=== PATIENT | male | born 1935 | race Caucasian/White ===

== ENCOUNTER 2016-03-24 18:19 | Inpatient (IN) | payer MEDICARE, BC ==
[~2016-03-24] VITALS: Ht 167.6 cm; Wt 68.0 kg
[~2016-03-24 18:19] MED LIST: ATOR10TA PO; CARV6.252 PO; FURO20TA4 PO; HYDR100T27 PO; ISOS30TA6 PO; LANS30CA10 PO; LEVO50TA8 PO; NIFE60TA2 PO; PREG75CA PO; ZOLP5TAB7 PO
[2016-03-24] MEDS ORDERED: GELATIN SPONGE,ABSORBABLE 1 SPONGE SPONGE TP ONE (19:27)
[2016-03-24 19:56] LABS: BASOPHILS % (AUTO) 0.5 % (0.0-2.0); DIFF TOTAL % 100 %; EOSINOPHILS # (AUTO) 0.4 /CMM (0.0-0.7); EOSINOPHILS % (AUTO) 4.9 % (0.0-6.0); HEMATOCRIT 35 % (39-51); LYMPHOCYTES # (AUTO) 1.8 /CMM (0.8-4.8); LYMPHOCYTES % (AUTO) 19.3 % (20.0-44.0); MEAN CORPUSCULAR HEMOGLOBIN 34 PG (26.0-33.0); MEAN CORPUSCULAR HGB CONC 35 g/dl (31.0-36.0); MEAN CORPUSCULAR VOLUME 100 fL (80-96); MONOCYTES # (AUTO) 0.5 /CMM (0.1-1.30); MONOCYTES % (AUTO) 5.6 % (2.0-12.0); NEUTROPHILS # (AUTO) 6.4 /CMM (1.8-8.9); NEUTROPHILS % (AUTO) 69.7 % (43.0-81.0); PLATELET COUNT (AUTO) 86 /CMM (150-450); RED BLOOD CELL COUNT(AUTO) 3.48 MIL/uL (4.5-6.0); WHITE BLOOD COUNT (AUTO) 9.1 K/uL (4.3-11.0)
[2016-03-24] MEDS ORDERED: ONDANSETRON HCL/PF 4 MG/2 ML VIAL ONE (20:02)
[2016-03-24 20:04] LABS: CALCIUM, SERUM 9.4 mg/dL (8.5-10.1); CREATININE 4.2 mg/dL (0.6-1.3); POTASSIUM 5.1 mmol/L (3.5-5.1)
[2016-03-24 20:10] LABS: INR 1.04 (0.87-1.13); PROTHROMBIN TIME 10.9 SECS (9.5-12.7)
[2016-03-24 20:24] LABS: BAND % (MANUAL) 2 % (0.0-5.0); EOSINOPHILS % (MANUAL) 3 % (0-4); LYMPHOCYTES % (MANUAL) 31 % (16-48)
[2016-03-24 20:25] LABS: ANISOCYTOSIS 1+; PLATELET ESTIMATE DECREASED
[2016-03-24] MEDS ORDERED: IV NS 0.9% 500 ML IV ONE (20:28)
[2016-03-24] MEDS ORDERED: IV SET PRIMARY 1 EA INFUS.SET MC ONE (20:28)
[2016-03-24] MEDS ORDERED: IV NS 0.9% 500 ML BAG IV ONE ×2 (20:30→21:30)
[2016-03-24] MEDS ORDERED: ACETAMINOPHEN 325 MG TABLET ONE (20:50)
[2016-03-24] MEDS ORDERED: ACETAMINOPHEN 325 MG TABLET PO ONE (21:00)
[2016-03-24] MEDS ORDERED: ONDANSETRON HCL/PF 4 MG/2 ML VIAL IV ONE (21:00)
[2016-03-24] MEDS ORDERED: CHOL20004 PO (22:02)
[2016-03-24] MEDS ORDERED: ALPR0.5T PO (22:02)
[2016-03-24] MEDS ORDERED: ASCO500T9 PO (22:02)
[2016-03-24] MEDS ORDERED: OMEG1CAP40 PO (22:02)
[2016-03-24] MEDS ORDERED: hydrALAZINE HCL 25 MG TABLET PO PRN (22:30)
[2016-03-24] MEDS ORDERED: ONDANSETRON HCL/PF 4 MG/2 ML VIAL IV PRN (22:30)
[2016-03-24] MEDS ORDERED: INSULIN REGULAR, HUMAN 100 UNIT/ML 10 ML VIAL IV ONE (22:30)
[2016-03-24] MEDS ORDERED: SODIUM POLYSTYRENE SULFONATE 15 G/60 ML BOTTLE PO ONE (22:30)
[2016-03-24] MEDS ORDERED: DEXTROSE 50%-WATER 50 ML DISP.SYRIN IV ONE (22:30)
[2016-03-24] MEDS ORDERED: ALPRAZOLAM 0.5 MG TABLET PO SCH (23:30)
[2016-03-25] VITALS: BP 100/54
[2016-03-25] MEDS ORDERED: SODIUM POLYSTYRENE SULFONATE 15 G/60 ML BOTTLE ONE (00:05)
[2016-03-25 00:44] VITALS: BP 105/62
[2016-03-25 04:00] VITALS: BP 121/64
[2016-03-25 06:42] LABS: BASOPHILS # (AUTO) 0.1 /CMM (0.0-0.2); BASOPHILS % (AUTO) 1.1 % (0.0-2.0); DIFF TOTAL % 100 %; EOSINOPHILS # (AUTO) 0.1 /CMM (0.0-0.7); EOSINOPHILS % (AUTO) 2.2 % (0.0-6.0); HEMATOCRIT 25 % (39-51); HEMOGLOBIN 8.6 g/dL (13.5-17.5); LYMPHOCYTES # (AUTO) 2.2 /CMM (0.8-4.8); LYMPHOCYTES % (AUTO) 36.6 % (20.0-44.0); MEAN CORPUSCULAR HEMOGLOBIN 35 PG (26.0-33.0); MEAN CORPUSCULAR HGB CONC 34 g/dl (31.0-36.0); MEAN CORPUSCULAR VOLUME 102 fL (80-96); MONOCYTES # (AUTO) 0.4 /CMM (0.1-1.30); MONOCYTES % (AUTO) 7.1 % (2.0-12.0); NEUTROPHILS # (AUTO) 3.2 /CMM (1.8-8.9); PLATELET COUNT (AUTO) 83 /CMM (150-450); RED BLOOD CELL COUNT(AUTO) 2.47 MIL/uL (4.5-6.0); WHITE BLOOD COUNT (AUTO) 6.1 K/uL (4.3-11.0)
[2016-03-25 06:56] VITALS: BP 106/53
[2016-03-25 07:22] LABS: CALCIUM, SERUM 8.1 mg/dL (8.5-10.1); PHOSPHORUS 4.3 mg/dL (2.5-4.9); POTASSIUM 5.2 mmol/L (3.5-5.1)
[2016-03-25 08:00] VITALS: BP_SYST 106; BP_DIAS 63; BP_DIAS 93
[2016-03-25 08:44] LABS: EOSINOPHILS % (MANUAL) 3 % (0-4); LYMPHOCYTES % (MANUAL) 34 % (16-48)
[2016-03-25 08:45] LABS: ANISOCYTOSIS 1+; PLATELET ESTIMATE DECREASED
== END 2016-03-25 13:38 | disposition home or self-care (01) | DRG 252 ==
LOC: ER 18:21 → TELE 21:35 → MED 03-25 10:11
PROVIDERS: ADMIT Internal Medicine; ATTEND Internal Medicine
PROC: 03Q70ZZ Repair Right Brachial Artery, Open Approach (ICD-10-PCS; principal; 2016-03-24)
DX: T82.838A Hemorrhage due to vascular prosthetic devices, implants and grafts, initial encounter (principal); N18.6 End stage renal disease; I12.0 Hypertensive chronic kidney disease with stage 5 chronic kidney disease or end stage renal disease; I31.3 Pericardial effusion (noninflammatory); Y83.9 Surgical procedure, unspecified as the cause of abnormal reaction of the patient, or of later complication, without mention of misadventure at the time of the procedure; Y92.009 Unspecified place in unspecified non-institutional (private) residence as the place of occurrence of the external cause; E11.22 Type 2 diabetes mellitus with diabetic chronic kidney disease; I25.10 Atherosclerotic heart disease of native coronary artery without angina pectoris; Z99.2 Dependence on renal dialysis; E87.5 Hyperkalemia; D50.0 Iron deficiency anemia secondary to blood loss (chronic)
CPT/HCPCS: 36415; 80048-TC; 83735-TC; 84100-TC; 84132-TC; 85025-TC; 85027-TC; 85730-TC; 86850-TC; 86901; 87081-TC; 93307-TC; A4606; A6403; J1815; J2405; J7040; Z7610

== ENCOUNTER 2016-05-26 19:20 | Emergency (ER) | payer MEDICARE, BC ==
[~2016-05-26] VITALS: Ht 172.7 cm; Wt 72.6 kg
[~2016-05-26 19:20] MED LIST changes: +ALPR0.5T PO; +ASCO500T9 PO; +CHOL20004 PO; +OMEG1CAP40 PO
[2016-05-26 19:26] VITALS: BP 121/68
[2016-05-26] MEDS ORDERED: GELATIN SPONGE,ABSORBABLE 1 SPONGE SPONGE TP ONE ×2 (19:27→20:04)
--- NOTE | 2016-05-26 19:30 | NUR ---
To bed 5 a 81 yo male bib with c/o bleeding av shunt on the right upper arm. Patient reported that it has been bleeding since 1700 from home. Patient verbalized that he had dialysis today but when he arrived home, bleeding started. Noted right AV shunt actively bleeding, and pulsating. Direct pressure with gel foam applied. Awaiting for er md tse.
--- NOTE | 2016-05-26 19:40 | NUR ---
Dr walton at bedside.
--- NOTE | 2016-05-26 19:55 | NUR ---
Dr Max sutured area, applied with dermabond, wrapped with kerlix.
--- NOTE | 2016-05-26 20:28 | NUR ---
No signs of bleeding noted on the dressing. Will continue to monitor.
--- NOTE | 2016-05-26 20:31 | NUR ---
Reminded Dr Max about the gel foam orders.
--- NOTE | 2016-05-26 21:05 | NUR ---
Patient and eloped. Dr Max notified.
== END 2016-05-26 21:05 | disposition home or self-care (01) ==
LOC: ER 19:22
DX: T82.838A Hemorrhage due to vascular prosthetic devices, implants and grafts, initial encounter (principal); I12.0 Hypertensive chronic kidney disease with stage 5 chronic kidney disease or end stage renal disease; N18.6 End stage renal disease; E11.22 Type 2 diabetes mellitus with diabetic chronic kidney disease; Z95.5 Presence of coronary angioplasty implant and graft; Z99.2 Dependence on renal dialysis
CPT/HCPCS: A4606; A6402; A6403; Z7610

== ENCOUNTER 2016-08-09 20:06 | Emergency (ER) | payer BC, MEDICARE ==
[~2016-08-09] VITALS: Ht 167.6 cm; Wt 72.6 kg
--- NOTE | 2016-08-09 20:53 | NUR ---
NOSE CLAMP APPLIED.
--- NOTE | 2016-08-09 20:55 | NUR ---
Too COLEY, ACNP-SCARLET AND BYRON FRANCIS ARE AT THE BEDSIDE EVALUATIG THE PT.
--- NOTE | 2016-08-09 21:01 | NUR ---
CALLED , LEFT MESSAGE ON VOICEMAIL
[2016-08-09 21:21] LABS: BASOPHILS # (AUTO) 0.1 /CMM (0.0-0.2); BASOPHILS % (AUTO) 0.7 % (0.0-2.0); EOSINOPHILS # (AUTO) 0.2 /CMM (0.0-0.7); EOSINOPHILS % (AUTO) 2.8 % (0.0-6.0); HEMATOCRIT 35 % (39-51); HEMOGLOBIN 11.9 g/dL (13.5-17.5); LYMPHOCYTES # (AUTO) 1.4 /CMM (0.8-4.8); LYMPHOCYTES % (AUTO) 19.3 % (20.0-44.0); MEAN CORPUSCULAR HEMOGLOBIN 32 PG (26.0-33.0); MEAN CORPUSCULAR HGB CONC 34 g/dl (31.0-36.0); MEAN CORPUSCULAR VOLUME 95 fL (80-96); MONOCYTES # (AUTO) 0.4 /CMM (0.1-1.30); MONOCYTES % (AUTO) 5.1 % (2.0-12.0); NEUTROPHILS # (AUTO) 5.1 /CMM (1.8-8.9); NEUTROPHILS % (AUTO) 72.1 % (43.0-81.0); PLATELET COUNT (AUTO) 112 /CMM (150-450); RDW COEFFICIENT OF VARIATION 13.6 (11.5-15.0); WHITE BLOOD COUNT (AUTO) 7.2 K/uL (4.3-11.0)
[2016-08-09] MEDS ORDERED: OXYMETAZOLINE HCL NASAL SPRAY 30 ML BOTTLE NS ONE ×2 (21:30)
[2016-08-09 21:34] LABS: INR 0.99 (0.87-1.13); PROTHROMBIN TIME 10.3 SECS (9.5-12.7)
--- NOTE | 2016-08-09 21:50 | NUR ---
AFRIN APPLIED TO COTTON BALLS AND INSERTED INTO BILATERAL NARES BY BYRON FRANCIS.
--- NOTE | 2016-08-09 22:08 | NUR ---
COTTON BALLS REMOVED BY BYRON FRANCIS.
--- NOTE | 2016-08-09 22:15 | NUR ---
PT'S NOSE STARTED BLEEDING AGAIN. RHINO ROCKETS AT THE BEDSIDE.
[2016-08-09 23:13] VITALS: BP 133/84
== END 2016-08-09 23:13 | disposition home or self-care (01) ==
LOC: ER 20:11
DX: R04.0 Epistaxis (principal); N18.6 End stage renal disease; E11.9 Type 2 diabetes mellitus without complications; Z95.811 Presence of heart assist device
CPT/HCPCS: 30901; 36415; 85025; 85730; 99284; A4606; Z7610

== ENCOUNTER 2017-09-15 20:19 | Inpatient (IN) | payer MEDICARE, BC ==
[~2017-09-15] VITALS: Ht 165.1 cm; Wt 53.5 kg
[~2017-09-15 20:19] MED LIST changes: -LANS30CA10 PO; +LANS30CA54 PO; -ZOLP5TAB7 PO; +ZOLP5TAB8 PO
--- NOTE | 2017-09-15 20:55 | NUR ---
CALLED 'S OFFICE, CLINIC OFFICE COORDINATOR, TRANSFERRED CALL TO PENNY VILLARREAL)
--- NOTE | 2017-09-15 21:00 | NUR ---
ER BYRON ESCOBEDO SPOKE TO DR. NAJERA REGARDING PT.
--- NOTE | 2017-09-15 21:14 | NUR ---
BLOOD DRAWN BY MANAGER GROUP HOME.
[2017-09-15 21:18] LABS: BASOPHILS % (AUTO) 1.1 % (0.0-2.0); EOSINOPHILS % (AUTO) 10.9 % (0.0-6.0); HEMATOCRIT 34 % (39-51); HEMOGLOBIN 11.7 g/dL (13.5-17.5); LYMPHOCYTES # (AUTO) 1.5 /CMM (0.8-4.8); LYMPHOCYTES % (AUTO) 32.6 % (20.0-44.0); MEAN CORPUSCULAR HEMOGLOBIN 35 PG (26.0-33.0); MEAN CORPUSCULAR HGB CONC 35 g/dl (31.0-36.0); MEAN CORPUSCULAR VOLUME 100 fL (80-96); MONOCYTES # (AUTO) 0.3 /CMM (0.1-1.30); MONOCYTES % (AUTO) 7.2 % (2.0-12.0); NEUTROPHILS # (AUTO) 2.2 /CMM (1.8-8.9); NEUTROPHILS % (AUTO) 48.2 % (43.0-81.0); PLATELET COUNT (AUTO) 72 /CMM (150-450); RDW COEFFICIENT OF VARIATION 13.3 (11.5-15.0); RED BLOOD CELL COUNT(AUTO) 3.35 MIL/uL (4.5-6.0); WHITE BLOOD COUNT (AUTO) 4.5 K/uL (4.3-11.0)
[2017-09-15 21:28] LABS: CALCIUM, SERUM 9.1 mg/dL (8.5-10.1); CARBON DIOXIDE 31 mmol/L (21-32); CHLORIDE 100 mmol/L (98-107); CREATININE 5.1 mg/dL (0.6-1.3); GLUCOSE 115 mg/dL (74-106); POTASSIUM 5.1 mmol/L (3.5-5.1); SODIUM SERUM 134 mmol/L (136-145); UREA NITROGEN, BLOOD 37 mg/dL (7-18)
--- NOTE | 2017-09-15 21:43 | NUR ---
JUAN DANIEL PAGED, COMMUNICATIONS INTERN
--- NOTE | 2017-09-15 22:03 | NUR ---
REPORT CALLED TO M/S SLADE CALERO. WILL TRANSPORT PT TO ROOM 323-1
--- NOTE | 2017-09-15 22:10 | NUR ---
ER BYRON FRANCIS TALKING TO DR. FRAZIER REGARDING PT ADMISSION.
[2017-09-15 22:25] VITALS: BP 154/74
--- NOTE | 2017-09-15 22:25 | NUR ---
RN NOTES RECEIVED PATIENT FROM ER, PT TRANSFERRED TO BED SAFELY, PT IS A/O X 4, VERBALLY RESPONSIVE. NO DISTRESS, NOR SOB NOTED. RESPIRATION IS EVEN AND UNLABORED. IV SITE ON RFA, INTACT AND PATENT, NO S/S OF INFILTRATION NOTED. NO S/S OF PAIN OR DISCOMFORT. SAFETY PRECAUTIONS OBSERVED. UNABLE TO DO FULL BODY CHECK , PT REFUSED TO REMOVE HIS POLO AND PANTS AT THIS TIME, PE PT HE DOESN'T HAVE ANY WOUNDS OR SKIN ISSUES, RISK AND BENEFITS EXPLAINED BUT PT STILL REFUSED X 3. ALL NEEDS ATTENDED AND MET. CALL LIGHT WITHIN REACH. WILL CONT TO MONITOR.
[2017-09-15 23:00] VITALS: BP 154/74
[2017-09-15] MEDS ORDERED: ALPRAZOLAM 0.5 MG TABLET PO SCH (23:30)
[2017-09-15] MEDS: NIFEdipine XL 60 MG TAB PO SCH (23:30)
[2017-09-15] MEDS ORDERED: ONDANSETRON HCL/PF 4 MG/2 ML VIAL IVP PRN (23:30)
[2017-09-15] MEDS ORDERED: Z GUARD REMEDY 2 OZ OINT TP PRN (23:30)
[2017-09-15] MEDS ORDERED: ZOLPIDEM TARTRATE 5 MG TABLET PO PRN (23:30)
[2017-09-15] MEDS: CARVEDILOL 6.25 MG TABLET PO SCH (23:30)
[2017-09-15] MEDS ORDERED: HYDROCODONE/APAP 5/325MG 1 EACH TABLET PO PRN (23:30)
[2017-09-15] MEDS ORDERED: ACETAMINOPHEN 325 MG TABLET PO PRN (23:30)
[2017-09-16 01:00] VITALS: BP 140/72
[2017-09-16 04:00] VITALS: BP 128/66
--- NOTE | 2017-09-16 06:30 | NUR ---
RN NOTES PT RESTING IN BED, AROUSES EASILY, PT IS A/O X 4, VERBALLY RESPONSIVE. NO DISTRESS, NOR SOB NOTED. RESPIRATION IS EVEN AND UNLABORED. IV SITE ON RFA, INTACT AND PATENT, NO S/S OF INFILTRATION NOTED. NO S/S OF PAIN OR DISCOMFORT. SAFETY PRECAUTIONS OBSERVED. ALL NEEDS ATTENDED AND MET. CALL LIGHT WITHIN REACH. WILL ENDORSE TO NEXT SHIFT FOR CHAPITO.
--- NOTE | 2017-09-16 06:51 | NUR ---
DR EDMONDS PAGED AND MADE AWARE OF ADMISSION.
[2017-09-16 06:53] LABS: BASOPHILS # (AUTO) 0.1 /CMM (0.0-0.2); BASOPHILS % (AUTO) 1.1 % (0.0-2.0); EOSINOPHILS % (AUTO) 9.9 % (0.0-6.0); HEMATOCRIT 31 % (39-51); HEMOGLOBIN 10.7 g/dL (13.5-17.5); LYMPHOCYTES # (AUTO) 1.8 /CMM (0.8-4.8); LYMPHOCYTES % (AUTO) 36.7 % (20.0-44.0); MEAN CORPUSCULAR HEMOGLOBIN 35 PG (26.0-33.0); MEAN CORPUSCULAR HGB CONC 35 g/dl (31.0-36.0); MEAN CORPUSCULAR VOLUME 101 fL (80-96); MONOCYTES # (AUTO) 0.4 /CMM (0.1-1.30); MONOCYTES % (AUTO) 7.4 % (2.0-12.0); NEUTROPHILS # (AUTO) 2.1 /CMM (1.8-8.9); NEUTROPHILS % (AUTO) 44.9 % (43.0-81.0); PLATELET COUNT (AUTO) 65 /CMM (150-450); RDW COEFFICIENT OF VARIATION 13.5 (11.5-15.0); RED BLOOD CELL COUNT(AUTO) 3.04 MIL/uL (4.5-6.0); WHITE BLOOD COUNT (AUTO) 4.9 K/uL (4.3-11.0)
--- NOTE | 2017-09-16 07:12 | NUR ---
MS RN OPENING NOTE RECEIVED BEDSIDE SBAR REPORT ON THE PATIENT. PATIENT IS A/O X4, AWAKE AND RESPONSIVE IN BED IS LOCKED IN LOWEST POSITION, SIDE RAILS UP X2,BED ALARM IS ON. PATIENT IS AMBULATORY WITH ASSIST. CALL LIGHT WITHIN REACH. EDUCATED THE PATIENT TO CALL FOR ASSISTANCE USING THE CALL LIGHT. PATIENT VERBALIZED UNDERSTANDING. CHEST RISING EQUALLY, BILATERALLY. SPO2 94% ON RA. VS WNL. RIGHT UPPER ARM FISTULA PRESENT. AUSCULTATED FOR BRUIT AND PALPATED FOR THRILL. SIGN POSTED FOR NO BP/BLOOD MINOO IN RIGHT ARM. DENIES PAIN/DISCOMFORT AT THIS TIME. AWAITING FOR VASCULAR SURGEON CONSUL. WILL CONTINUE TO ASSESS/MONITOR THROUGHOUT THE SHIFT.
[2017-09-16 07:17] LABS: ALANINE AMINOTRANSFERASE 21 U/L (12-78); ALBUMIN 3.2 g/dL (3.4-5.0); ALKALINE PHOSPHATASE 99 U/L (46-116); ASPARTATE AMINOTRANSFERASE 27 U/L (15-37); BILIRUBIN,TOTAL 0.5 mg/dL (0.2-1.0); CALCIUM, SERUM 8.5 mg/dL (8.5-10.1); CARBON DIOXIDE 27 mmol/L (21-32); CHLORIDE 102 mmol/L (98-107); CREATININE 4.8 mg/dL (0.6-1.3); GLUCOSE 89 mg/dL (74-106); MAGNESIUM 2.2 mg/dL (1.8-2.4); PHOSPHORUS 2.7 mg/dL (2.5-4.9); POTASSIUM 4.9 mmol/L (3.5-5.1); SODIUM SERUM 135 mmol/L (136-145); TOTAL PROTEIN, SERUM 6.6 g/dL (6.4-8.2); UREA NITROGEN, BLOOD 40 mg/dL (7-18)
[2017-09-16 07:19] LABS: CHOLESTEROL 118 mg/dL (<200); HDL CHOLESTEROL 41 mg/dL (40-60); LDL 63 mg/dL (0-99); THYROID STIMULATING HORMONE 0.345 uIU/mL (0.358-3.74); TRIGLYCERIDES 60 mg/dL (30-150)
[2017-09-16 07:28] LABS: IRON, SERUM 41 ug/dl (50-175); TOTAL IRON BINDING CAPACITY 156 ug/dl (250-450)
[2017-09-16] MEDS ORDERED: PANTOPRAZOLE 40 MG TABLET.DR PO SCH (07:30)
[2017-09-16] MEDS ORDERED: LEVOTHYROXINE SODIUM 50 MCG TABLET PO SCH (07:30)
[2017-09-16] MEDS ORDERED: LEVOTHYROXINE SODIUM 25 MCG TABLET PO SCH (07:30)
[2017-09-16 08:00] VITALS: BP 135/65
[2017-09-16] MEDS: PREGABALIN 25 MG CAPSULE PO SCH ×2 (08:28→08:33)
[2017-09-16] MEDS: NIFEdipine XL 60 MG TAB PO SCH (08:29)
[2017-09-16 08:32] VITALS: BP 135/65
[2017-09-16] MEDS: CARVEDILOL 6.25 MG TABLET PO SCH (08:32)
[2017-09-16] MEDS ORDERED: DOCUSATE SODIUM 100 MG CAPSULE PO SCH (09:00)
[2017-09-16] MEDS: hydrALAZINE HCL 50 MG TABLET PO SCH ×2 (09:00→13:00)
[2017-09-16] MEDS ORDERED: Medication Not On Formulary EA (Omega-3 Fatty Acids/Fish Oil (Omega 3 1,000 Mg Softgel) PO SCH (09:00)
[2017-09-16] MEDS ORDERED: ISOSORBIDE MONONITRATE (30MG) 30 MG TAB.SR.24H PO SCH (09:00)
[2017-09-16] MEDS ORDERED: ASCORBIC ACID 500 MG TABLET PO SCH (09:00)
[2017-09-16] MEDS ORDERED: CHOLECALCIFEROL 1,000 UNIT TABLET (VIT D3) PO SCH (09:00)
[2017-09-16 10:34] LABS: EOSINOPHILS % (MANUAL) 6 % (0-4); LYMPHOCYTES % (MANUAL) 31 % (16-48); MONOCYTES % (MANUAL) 9 % (0-11.0); NEUTROPHILS % (MANUAL) 54 (42-76)
--- NOTE | 2017-09-16 12:35 | NUR ---
Patient's stated she wants her to be discharged and proceed with his outpatient dialysis today at 1300. Dr Dalal discharged the patient. Patient's IV removed with the ti[p intact. oclusive dressing applied. All belongings are accounted for, belongings list is signed. The stated she will take the patient to dialysis next door and will come back to sign discharge papers. Patient left the premises in stable condition.
--- NOTE | 2017-09-16 12:40 | NUR ---
Patient/ refused pictures stating they are in a hurry and they took picture just last night. Skin is intact. Right upper arm fistula present. left forearm red discoloration present. Otherwise skin is intact, warm to touch.
--- NOTE | 2017-09-16 13:00 | NUR ---
Patient's came back and signed the discharge papers. copies given to the .
--- NOTE | 2017-09-16 18:07 | NUR ---
Patient lives locally with family. He is ambulatory. He has good family support. He received hemodialysis 3x/week pa [facility] [phone] Addendum: 09/16/17 at 1808 by AZALIA KHOURY RN Amended: Links added.
[2017-09-16] MEDS ORDERED: ATORVASTATIN 40 MG TABLET PO SCH (22:00)
== END 2017-09-16 12:30 | disposition home or self-care (01) | DRG 314 ==
LOC: ER 20:20 → MED 22:00 → TELE 09-16 06:11 → MED 09-16 09:05
PROVIDERS: ADMIT Internal Medicine; ATTEND Internal Medicine
DX: T82.848A Pain due to vascular prosthetic devices, implants and grafts, initial encounter (principal); N18.6 End stage renal disease; I31.3 Pericardial effusion (noninflammatory); I12.0 Hypertensive chronic kidney disease with stage 5 chronic kidney disease or end stage renal disease; Y83.9 Surgical procedure, unspecified as the cause of abnormal reaction of the patient, or of later complication, without mention of misadventure at the time of the procedure; Y92.89 Other specified places as the place of occurrence of the external cause; E11.22 Type 2 diabetes mellitus with diabetic chronic kidney disease; D63.1 Anemia in chronic kidney disease; E03.9 Hypothyroidism, unspecified; E78.5 Hyperlipidemia, unspecified; I25.10 Atherosclerotic heart disease of native coronary artery without angina pectoris; Z95.5 Presence of coronary angioplasty implant and graft; Z99.2 Dependence on renal dialysis
CPT/HCPCS: 36415; 71045-TC; 80048-TC; 80053-TC; 80061-TC; 83540-TC; 83735-TC; 84100-TC; 84443-TC; 85025-TC; 85730-TC; 87081-TC; A4606; Z7610

== ENCOUNTER 2017-10-20 01:59 | Emergency (ER) | payer MEDICARE, BC ==
[~2017-10-20] VITALS: Ht 165.1 cm; Wt 54.4 kg
--- NOTE | 2017-10-20 02:28 | NUR ---
PT AA/O X4 COMPLAINING OF SOB X4 DAYS. RONCHI AUSCULTATED IN BILATERAL LOWER LOBES. NO S/S OF SOB. SKIN PINK, WARM, DRY. DIALYSIS FISTULAS NOTED ON LT UPPER EXTREMITY. ENLARGED VASCULATURE NOTED ON RT UPPER EXTREMITY FROM PREVIOUS FISTULAS. NAD. VSS. STABLE CONDITION. AWAITING PATRICIA OLIVO.
--- NOTE | 2017-10-20 02:31 | NUR ---
EKG AT BEDSIDE
[2017-10-20 02:34] LABS: BASOPHILS # (AUTO) 0.1 /CMM (0.0-0.2); EOSINOPHILS % (AUTO) 10.3 % (0.0-6.0); HEMATOCRIT 28 % (39-51); HEMOGLOBIN 9.4 g/dL (13.5-17.5); LYMPHOCYTES # (AUTO) 1.7 /CMM (0.8-4.8); LYMPHOCYTES % (AUTO) 27.6 % (20.0-44.0); MEAN CORPUSCULAR HEMOGLOBIN 35 PG (26.0-33.0); MEAN CORPUSCULAR HGB CONC 34 g/dl (31.0-36.0); MEAN CORPUSCULAR VOLUME 104 fL (80-96); MONOCYTES # (AUTO) 0.4 /CMM (0.1-1.30); NEUTROPHILS # (AUTO) 3.4 /CMM (1.8-8.9); NEUTROPHILS % (AUTO) 55.1 % (43.0-81.0); PLATELET COUNT (AUTO) 127 /CMM (150-450); RDW COEFFICIENT OF VARIATION 14.7 (11.5-15.0); RED BLOOD CELL COUNT(AUTO) 2.71 MIL/uL (4.5-6.0); WHITE BLOOD COUNT (AUTO) 6.1 K/uL (4.3-11.0)
[2017-10-20] MEDS ORDERED: FAMO-131 PO (02:39)
[2017-10-20] MEDS ORDERED: PREG75CA PO (02:39)
[2017-10-20 02:45] LABS: CALCIUM, SERUM 8.5 mg/dL (8.5-10.1); CARBON DIOXIDE 27 mmol/L (21-32); CHLORIDE 102 mmol/L (98-107); CREATININE 4.6 mg/dL (0.6-1.3); GLUCOSE 124 mg/dL (74-106); POTASSIUM 4.7 mmol/L (3.5-5.1); SODIUM SERUM 133 mmol/L (136-145); UREA NITROGEN, BLOOD 33 mg/dL (7-18)
[2017-10-20 02:53] LABS: TROPONIN I < 0.017 ng/mL (0.00-0.056)
[2017-10-20 02:58] LABS: B-TYPE NATRIURETIC PEPTIDE 7420 PG/ML (0-125)
--- NOTE | 2017-10-20 03:09 | NUR ---
AT BEDSIDE FOR PT PLAN
[2017-10-20] MEDS ORDERED: FUROSEMIDE 40 MG/4 ML VIAL ONE (03:13)
[2017-10-20] MEDS ORDERED: FUROSEMIDE 40 MG/4 ML VIAL IV ONE (03:30)
--- NOTE | 2017-10-20 03:33 | NUR ---
PT REMOVED FROM O2 2LPM VIA NC AT APPROXIMATELY 0317 AT 99%. PT CURRENTLY SATURATING AT 96% ON ROOM AIR. JESSICA LARSON NOTIFIED
--- NOTE | 2017-10-20 04:42 | NUR ---
Patient is resting comfortably in bed with eyes closed. Easily aroused. VSS
[2017-10-20] MEDS ORDERED: ALBUTEROL FS 2.5 MG/3 ML VIAL.NEB ONE (05:52)
--- NOTE | 2017-10-20 07:34 | NUR ---
PT ENDORSED TO ONCOMING SHIFT SLADE CADET. PT STABLE CONDITION. VSS. NAD.
--- NOTE | 2017-10-20 07:40 | NUR ---
IV removed. Catheter intact and site benign. Pressure and 4x4 applied to site. No bleeding noted.
[2017-10-20 08:08] VITALS: BP 134/62
== END 2017-10-20 08:09 | disposition home or self-care (01) ==
LOC: ER 02:00
DX: I13.2 Hypertensive heart and chronic kidney disease with heart failure and with stage 5 chronic kidney disease, or end stage renal disease (principal); N18.6 End stage renal disease; I50.9 Heart failure, unspecified; Z99.2 Dependence on renal dialysis; I25.10 Atherosclerotic heart disease of native coronary artery without angina pectoris; E03.9 Hypothyroidism, unspecified
CPT/HCPCS: 36415; 71045; 80048; 83880; 84484; 85025; 93005; 96374; 99285; A4606; A6403; J1940; Z7610

== ENCOUNTER 2017-10-21 20:49 | Emergency (ER) | payer MEDICARE, BC ==
[~2017-10-21] VITALS: Ht 165.1 cm; Wt 52.2 kg
[~2017-10-21 20:49] MED LIST changes: +FAMO-131 PO
--- NOTE | 2017-10-21 21:20 | NUR ---
PT AA/O X4 COMPLAINING OF SOB SINCE THIS AFETERNOON. RECENTLY SCENE HERE THIS PAST MONDAY FOR SIMILAR COMPLAINTS. NO TRIPODING, NASAL FLARING. BULL HEARD IN BILATERAL BASES. SKIN PINK, WARM, DRY. DIALYSIS SHUNT ON RT ARM. ENLARGED VEINS TO LT ARM FROM PREVIOUS SHUNT PLACEMENT. MINIMAL EDEMA RIGHT HAND AND FOOT. NAD. VSS. STABLE CONDITION. WILL CONTINUE TO MONITOR Addendum: 10/21/17 at 2157 by VANIA SPEAKING FULL SENTENCES.
--- NOTE | 2017-10-21 22:36 | NUR ---
Patient discharged to home in stable condition. Written and verbal after care instructions given. Patient verbalizes understanding of instruction. AMBULATED WITH STEADY GAIT. NO S/S SOB. INSTRUCTED NOT TO OPERATE OR DRIVE HEAVY MACHINERY.
[2017-10-21 22:38] VITALS: BP 138/70
== END 2017-10-21 22:38 | disposition home or self-care (01) ==
LOC: ER 20:50
DX: J90 Pleural effusion, not elsewhere classified (principal); I12.0 Hypertensive chronic kidney disease with stage 5 chronic kidney disease or end stage renal disease; N18.6 End stage renal disease; I25.10 Atherosclerotic heart disease of native coronary artery without angina pectoris; E03.9 Hypothyroidism, unspecified; Z99.2 Dependence on renal dialysis; Z95.828 Presence of other vascular implants and grafts; Z79.899 Other long term (current) drug therapy
CPT/HCPCS: 71045; 99283; A4606; Z7610

== ENCOUNTER 2017-12-19 08:37 | Inpatient (IN) | payer MEDICARE, BC ==
[~2017-12-19] VITALS: Ht 162.6 cm; Wt 54.9 kg
--- NOTE | 2017-12-19 08:40 | NUR ---
AAOx3, bib family c/o SOB since last night. Patient is a dialysis patient and schedule for HD today. Last dialysis was last monday12/16/17. RR is even and unlabored with NAD noted. Skin is warm and dry. Awaiting MD for eval.
--- NOTE | 2017-12-19 09:15 | NUR ---
Started IVHL right lower leg, and the blood drawn sent to the lab.
[2017-12-19 09:24] LABS: BASOPHILS % (AUTO) 0.8 % (0.0-2.0); EOSINOPHILS % (AUTO) 4.8 % (0.0-6.0); HEMATOCRIT 38 % (39-51); HEMOGLOBIN 12.2 g/dL (13.5-17.5); LYMPHOCYTES % (AUTO) 34.7 % (20.0-44.0); MEAN CORPUSCULAR HGB CONC 32 g/dl (31.0-36.0); MEAN CORPUSCULAR VOLUME 104 fL (80-96); MONOCYTES # (AUTO) 0.4 /CMM (0.1-1.30); MONOCYTES % (AUTO) 6.6 % (2.0-12.0); NEUTROPHILS % (AUTO) 53.1 % (43.0-81.0); PLATELET COUNT (AUTO) 71 /CMM (150-450); RDW COEFFICIENT OF VARIATION 15.2 (11.5-15.0); RED BLOOD CELL COUNT(AUTO) 3.66 MIL/uL (4.5-6.0); WHITE BLOOD COUNT (AUTO) 5.7 K/uL (4.3-11.0)
[2017-12-19 09:33] LABS: CALCIUM, SERUM 9.1 mg/dL (8.5-10.1); CARBON DIOXIDE 22 mmol/L (21-32); CHLORIDE 101 mmol/L (98-107); CREATININE 4.5 mg/dL (0.6-1.3); GLUCOSE 130 mg/dL (74-106); POTASSIUM 5.1 mmol/L (3.5-5.1); SODIUM SERUM 133 mmol/L (136-145); UREA NITROGEN, BLOOD 36 mg/dL (7-18)
[2017-12-19 09:41] LABS: TROPONIN I < 0.017 ng/mL (0.00-0.056)
[2017-12-19 09:44] LABS: INR 1.03 (0.87-1.13)
[2017-12-19 09:47] LABS: B-TYPE NATRIURETIC PEPTIDE 5549 PG/ML (0-125)
[2017-12-19 09:53] LABS: EOSINOPHILS % (MANUAL) 3 % (0-4); LYMPHOCYTES % (MANUAL) 31 % (16-48); MONOCYTES % (MANUAL) 6 % (0-11.0); NEUTROPHILS % (MANUAL) 60 (42-76)
--- NOTE | 2017-12-19 10:04 | NUR ---
Paged Dr. Diggs, the automobile relocation engineer for Dr. Kaufman
[2017-12-19] MEDS ORDERED: ISOS20TA8 PO (10:46)
[2017-12-19] MEDS ORDERED: NIFE30TA89 PO (10:46)
[2017-12-19] MEDS ORDERED: ATOR40TA PO (10:46)
[2017-12-19] MEDS ORDERED: LEVO125T8 PO (10:46)
[2017-12-19] MEDS ORDERED: FUROSEMIDE 40 MG/4 ML VIAL ONE (11:20)
[2017-12-19] MEDS ORDERED: FUROSEMIDE 40 MG/4 ML VIAL IV ONE (11:30)
--- NOTE | 2017-12-19 11:30 | NUR ---
Report given to SLADE Garland for TELE 308-1
[2017-12-19 12:00] VITALS: BP 164/79
--- NOTE | 2017-12-19 12:00 | NUR ---
CASTING AND PASTING SUPERVISORFLEET DRIVER NOTES ADMITTED FROM ER WITH DX OF CHF,SOB AND HEMODIALYSIS.PT IS ALERT AND ORIENTED X4.VERBALLY RESPONSIVE.AMBULATES WITH ASSIST DUE TO WEAKNESS.WITH O2 AT 2L/MIN VIA N/C.O2 SAT 97%.WITH BRP WITH ASSIST.PT IS FOR HD TODAY NOTIFIED SLIMEROVING CARRIER.AWAITING FOR [facility] TO CHECK ON THE PT.WITH NATALIE ARM AV FISTULA SHUNT INTACT.DENIES PAIN OR DISTRESS.CALL LIGHT PLACED WITHIN REACH.
[2017-12-19] MEDS: hydrALAZINE HCL 50 MG TABLET PO SCH ×3 (12:30→17:41)
--- NOTE | 2017-12-19 13:00 | NUR ---
PT IS HAVING HEMODIALYSIS PROCEDURE AT THIS TIME-HELD HYDRALAZINE TAB PO.
[2017-12-19 13:22] LABS: THYROID STIMULATING HORMONE 0.552 uIU/mL (0.358-3.74)
--- NOTE | 2017-12-19 14:51 | NUR ---
PAGED DR JENNIFER PRECIADO FOR ADMITTING ORDERS.WITH ORDERS MADE AND CARRIED OUT.
[2017-12-19] MEDS: ALBUTEROL FS 2.5 MG/0.5 ML VIAL.NEB NEB SCH ×3 (15:30→23:46)
[2017-12-19] MEDS: IPRATROPIUM NEB FS 0.5 MG/2.5 ML AMPUL.NEB NEB SCH ×3 (15:30→23:46)
[2017-12-19 15:35] VITALS: BP 186/82
[2017-12-19] MEDS: SENNOSIDES/DOCUSATE SODIUM 1 TAB TABLET PO PRN (15:59)
[2017-12-19 16:00] VITALS: BP 145/89
--- NOTE | 2017-12-19 16:03 | NUR ---
COMPLETED HEMODIALYSIS PROCEDURE WITH HIGH BP 186/82 HR 82.
--- NOTE | 2017-12-19 16:04 | NUR ---
HD DONE WITH 2 LITERS OUTPUT.
[2017-12-19] MEDS: CARVEDILOL 6.25 MG TABLET PO SCH (17:41)
[2017-12-19 17:42] VITALS: BP 165/70
[2017-12-19] MEDS: FAMOTIDINE (20 MG) 20 MG TABLET PO SCH (17:42)
[2017-12-19] MEDS: ISOSORBIDE DINITRATE (20MG) 20 MG TABLET PO SCH (17:42)
--- NOTE | 2017-12-19 18:25 | NUR ---
PT RESTING IN BED DENYING ANY PAIN OR DISTRESS.ATE 100% WITH FAIR APPETITE.CALL LIGHT PLACED WITHIN REACH.
--- NOTE | 2017-12-19 19:20 | NUR ---
CANTEEN OPERATOR OPENING NOTES RECEIVED PATIENT AWAKE, RESTING IN BED, NO C/O PAIN, NO SOB VERBALIZED AT THIS TIME. ON O2 2LMP VIA NC SATTING 97%. A & O X 3. ON TELE MONITORING WITH SR 75 WITH SLIGHT T WAVE ELEVATION. MD AWARE. AMBULATORY WITH ASSIST, BRP. IV ACCESS TO RIGHT LOWER LEG, SL, INTACT PATENT. ON CARDIAC DIET, TOLERATED WELL SO FAR. AV FISTULA TO RIGHT & LEFT ARM, DRESSING INTACT. PER AM RN REPORT, HD WAS DONE TODAY WITH 2L OUTPUT. NEXT HD WILL BE DONE TOMORROW IN AM. SAFETY MEASURES IN PLACE. BED IN LOW LOCKED POSITION. CALL LIGHT WITHIN REACH. WILL MONITOR CLOSELY FOR ANY CHAPITO.
[2017-12-19 20:00] VITALS: BP 154/68
--- NOTE | 2017-12-19 20:15 | NUR ---
INSPECTOR BALANCE WHEEL MOTION NOTE PATIENTS BODY TEMP NOTED TO BE 99.6, PT HAD VERY WARM CLOTHES ON, COVERED THE PT WITH EXTRA CLOTHING & BLANKETS BEFORE SHE LEFT. EXPLAINED TO THE PT ABOUT HIS BODY TEMP, PT AGREED TO REMOVE EXTRA CLOTHING, BUT REFUSED TO HAVE COOLING MEASURES DONE AT HIS TIME. EXTRA WARM CLOTHES, BLANKETS, SOCKS REMOVED, COVERED ONLY WITH SINGLE SHEET. WILL RECHECK THE TEMP AGAIN.
[2017-12-19 20:30] VITALS: BP 152/68
--- NOTE | 2017-12-19 20:50 | NUR ---
BAG WORKER NOTE BODY TEMP RECHECKED & NOTED TO BE 99.1. TEMP HAS GONE DOWN, WILL MONITOR THE PT CLOSELY.
[2017-12-19] MEDS: ATORVASTATIN 40 MG TABLET PO SCH (22:53)
--- NOTE | 2017-12-19 22:54 | NUR ---
LOAN PROCESSING SUPERVISOR NOTE PATIENT'S BODY TEMP NOTED TO BE 99.6, COOLING MEASURES INITIATED, EXTRA CLOTHING REMOVED, PO FLUIDS GIVEN TOLERATED. MONITORING CLOSELY.
[2017-12-20] VITALS (8 sets, daily range): BP systolic 141–163; BP diastolic 67–82
--- NOTE | 2017-12-20 | NUR ---
RECHECKED BODY TEMP PATIENT'S BODY TEMP NOTED TO BE 98.4, ORALLY. COOLING MEASURES WERE EFFECTIVE. PATIENT WANTED TO BE COVERED WITH THE BLANKET. WILL CONTINUE TO MONITOR.
[2017-12-20] MEDS: IPRATROPIUM NEB FS 0.5 MG/2.5 ML AMPUL.NEB NEB SCH ×6 (03:49→23:23)
[2017-12-20] MEDS: ALBUTEROL FS 2.5 MG/0.5 ML VIAL.NEB NEB SCH ×6 (03:49→23:23)
[2017-12-20 06:27] LABS: EOSINOPHILS % (AUTO) 3.7 % (0.0-6.0); HEMATOCRIT 38 % (39-51); HEMOGLOBIN 12.5 g/dL (13.5-17.5); LYMPHOCYTES # (AUTO) 1.8 /CMM (0.8-4.8); LYMPHOCYTES % (AUTO) 40.3 % (20.0-44.0); MEAN CORPUSCULAR HGB CONC 33 g/dl (31.0-36.0); MEAN CORPUSCULAR VOLUME 103 fL (80-96); MONOCYTES # (AUTO) 0.4 /CMM (0.1-1.30); MONOCYTES % (AUTO) 7.9 % (2.0-12.0); NEUTROPHILS # (AUTO) 2.1 /CMM (1.8-8.9); NEUTROPHILS % (AUTO) 47.1 % (43.0-81.0); RDW COEFFICIENT OF VARIATION 14.8 (11.5-15.0); RED BLOOD CELL COUNT(AUTO) 3.65 MIL/uL (4.5-6.0); WHITE BLOOD COUNT (AUTO) 4.5 K/uL (4.3-11.0)
[2017-12-20 06:29] LABS: TROPONIN I < 0.017 ng/mL (0.00-0.056)
[2017-12-20 06:35] LABS: ALANINE AMINOTRANSFERASE 18 U/L (12-78); ALBUMIN 3.1 g/dL (3.4-5.0); ALKALINE PHOSPHATASE 110 U/L (46-116); ASPARTATE AMINOTRANSFERASE 23 U/L (15-37); BILIRUBIN,TOTAL 0.8 mg/dL (0.2-1.0); CALCIUM, SERUM 8.7 mg/dL (8.5-10.1); CARBON DIOXIDE 27 mmol/L (21-32); CHLORIDE 101 mmol/L (98-107); GLUCOSE 86 mg/dL (74-106); MAGNESIUM 2.1 mg/dL (1.8-2.4); PHOSPHORUS 2.3 mg/dL (2.5-4.9); POTASSIUM 4.2 mmol/L (3.5-5.1); SODIUM SERUM 129 mmol/L (136-145); TOTAL PROTEIN, SERUM 6.6 g/dL (6.4-8.2); UREA NITROGEN, BLOOD 34 mg/dL (7-18)
--- NOTE | 2017-12-20 06:39 | NUR ---
LAST PICKER CLOSING NOTES PATIENT SLEPT INTERMITTENTLY AT NIGHT. NO C/O PAIN, NO SOB VERBALIZED DURING THE SHIFT. ON O2 2LMP VIA NC SATTING 96%. A & O X 3. ON TELE MONITORING WITH SR 71 WITH SLIGHT T WAVE ELEVATION. MD AWARE. IV ACCESS TO RIGHT LOWER LEG, SL, INTACT PATENT. AV FISTULA TO RIGHT & LEFT ARM, BOTH FUNCTIONAL. DRESSING INTACT. PT NOTED TO BE INCONTINENT AT NIGHT, DIAPER WAS APPLIED. BODY TEMP NOTED TO BE 98.5, NO MORE FEVER EPISODE NOTED. HD WILL BE DONE TODAY AT 0700. SAFETY MEASURES IN PLACE. BED IN LOW LOCKED POSITION. CALL LIGHT WITHIN REACH. WILL ENDORSE TO AM RN FOR CONTINUITY OF CARE.
[2017-12-20 06:58] LABS: PLATELET COUNT (AUTO) 48 /CMM (150-450)
--- NOTE | 2017-12-20 07:05 | NUR ---
LOW PLATELET COUNT EDGER FROM LAB CALLED TO INFORM THAT PT'S PLATELET COUNT HAS DROPPED FROM 71 TO 48. ENDORSED TO AM RN TO F/U WITH . PATIENT IS IN STABLE CONDITION AT THIS TIME.
--- NOTE | 2017-12-20 08:00 | NUR ---
rn notes RECEIVED PATIENT IN THE BED A/O X4, GERMAN SPEAKER, PATIENT AWAKE, HAS NO ACUTE RESPIRATORY DISTRESS, V/S TAKEN STABLE. PATIENT HAS AV SHUNT RIGHT AND LEFT UPPER ARM INTACT. IV ACCESS ON LEFT LOWER LEG. SCHEDULED MEDICATION ADMINISTERED. PATIENT GOING TO HAVE A HEMODIALYSIS AT THIS TIME. PATIENT REFUSED PAIN AT THIS TIME. ASSIST PATIENT TO THE BATHROOM. CALL LIGHT WITHIN TO REACH, SAFETY PRECAUTION MAINTAINED ALL THE TIME.
[2017-12-20 08:33] LABS: EOSINOPHILS % (MANUAL) 5 % (0-4); LYMPHOCYTES % (MANUAL) 44 % (16-48); MONOCYTES % (MANUAL) 6 % (0-11.0); NEUTROPHILS % (MANUAL) 45 (42-76)
[2017-12-20] MEDS: hydrALAZINE HCL 50 MG TABLET PO SCH ×3 (08:40→17:27)
[2017-12-20] MEDS: LEVOTHYROXINE SODIUM 125 MCG TABLET PO SCH (08:40)
[2017-12-20] MEDS: NIFEdipine XL (30MG) 30 MG TAB PO SCH (08:41)
[2017-12-20] MEDS: FAMOTIDINE (20 MG) 20 MG TABLET PO SCH ×2 (08:41→17:28)
[2017-12-20] MEDS: CARVEDILOL 6.25 MG TABLET PO SCH ×2 (08:41→17:28)
[2017-12-20] MEDS: ISOSORBIDE DINITRATE (20MG) 20 MG TABLET PO SCH ×2 (08:41→17:27)
--- NOTE | 2017-12-20 11:00 | NUR ---
RN NOTES FINISHED HD AT THIS TIME WAS REMOVED 2L OUTPUT PER HD NURSE. PATIENT STABLE GOING TO SEE PT . CONTINUED MONITORING.
[2017-12-20] MEDS ORDERED: K PHOS NEUTRAL 250 MG TABLET PO ONE (11:30)
--- NOTE | 2017-12-20 14:30 | NUR ---
rn notes patient resting in the bed, no acute respiratory distress, call light within to reach, safety precaution maintained all the time.
--- NOTE | 2017-12-20 18:30 | NUR ---
rn notes patient stable. refused pain at this time, scheduled medication administered, v/s stable. next to the bed. endorsed oncoming nurse for plan of care.
--- NOTE | 2017-12-20 19:48 | NUR ---
RN OPENING NOTES PT IS AWAKE AND ALERT, LAYING BED COMFORTABLY. PT IN ROOM AIR, TOLERATING WELL, NO SIGNS OF DISTRESS, NO SIGNS OF LABORED BREATHING. IV ACCESS ON THE RIGHT LOWER LEG 20G SALINE LOCK IS PATENT AND INTACT. AV SHUNT IS PATENT AND INTACT. NO REPORTS OF CHEST PAIN OR SOB. SAFETY MEASURES IN PLACED, CALL LIGHT WITHIN REACH. WILL CONTINUE TO MONITOR AND ASSESS PT.
[2017-12-20] MEDS: ATORVASTATIN 40 MG TABLET PO SCH (21:21)
--- NOTE | 2017-12-20 21:48 | NUR ---
RN NOTES PT REQUESTED NOT TO BE WAKEN UP FOR BREATHING TX AT MIDNIGHT AND 3PM, UNLESS HE'S AWAKE. EXPLAINED IMPORTANCE OF BREATHING TX, HE VERBALIZES UNDERSTANDING
[2017-12-21] MEDS: IPRATROPIUM NEB FS 0.5 MG/2.5 ML AMPUL.NEB NEB SCH ×4 (03:30→14:57)
[2017-12-21] MEDS: ALBUTEROL FS 2.5 MG/0.5 ML VIAL.NEB NEB SCH ×4 (03:30→14:57)
--- NOTE | 2017-12-21 06:48 | NUR ---
RN CLOSING NOTES PT ASLEEP IN BED, COMFORTABLY, EASILY AROUSED. PT IN ROOM AIR, TOLERATING WELL, NO SIGNS OF DISTRESS, NO SIGNS OF LABORED BREATHING. IV ACCESS ON THE RIGHT LOWER LEG 20G SALINE LOCK IS PATENT AND INTACT. RIGHT AND LEFT AV SHUNT IS PATENT AND INTACT. NO REPORTS OF CHEST PAIN OR SOB. SAFETY MEASURES IN PLACED, CALL LIGHT WITHIN REACH. WILL ENDORSE CONTINUITY OF CARE TO THE ONCOMING RN
--- NOTE | 2017-12-21 07:25 | NUR ---
RN NOTES PATIENT A/OX4, BREATHING EVEN AND UNLABORED, NO SOB NOTED, DENIES PAIN OR DISCOMFORT, PATIENT IS SCHEDULED TO HAVE HEMODIALYSIS TODAY. NEEDS ATTENDED, CALL LIGHT WITHIN REACH, WILL CONTINUE TO MONITOR.
[2017-12-21 08:00] VITALS: BP 148/72
[2017-12-21] MEDS: FAMOTIDINE (20 MG) 20 MG TABLET PO SCH (08:24)
[2017-12-21] MEDS: LEVOTHYROXINE SODIUM 125 MCG TABLET PO SCH (08:24)
[2017-12-21] MEDS: ISOSORBIDE DINITRATE (20MG) 20 MG TABLET PO SCH (08:41)
[2017-12-21] MEDS: CARVEDILOL 6.25 MG TABLET PO SCH (08:42)
[2017-12-21] MEDS: hydrALAZINE HCL 50 MG TABLET PO SCH ×2 (08:42→13:49)
[2017-12-21] MEDS: NIFEdipine XL (30MG) 30 MG TAB PO SCH (08:43)
[2017-12-21 10:19] LABS: BASOPHILS # (AUTO) 0.1 /CMM (0.0-0.2); HEMATOCRIT 39 % (39-51); HEMOGLOBIN 12.7 g/dL (13.5-17.5); LYMPHOCYTES # (AUTO) 1.5 /CMM (0.8-4.8); MEAN CORPUSCULAR HGB CONC 33 g/dl (31.0-36.0); MEAN CORPUSCULAR VOLUME 102 fL (80-96); MONOCYTES # (AUTO) 0.4 /CMM (0.1-1.30); NEUTROPHILS # (AUTO) 1.6 /CMM (1.8-8.9); RDW COEFFICIENT OF VARIATION 14.5 (11.5-15.0); RED BLOOD CELL COUNT(AUTO) 3.76 MIL/uL (4.5-6.0); WHITE BLOOD COUNT (AUTO) 3.8 K/uL (4.3-11.0)
[2017-12-21 10:27] LABS: CALCIUM, SERUM 8.4 mg/dL (8.5-10.1); CARBON DIOXIDE 28 mmol/L (21-32); CHLORIDE 100 mmol/L (98-107); GLUCOSE 110 mg/dL (74-106); MAGNESIUM 2.2 mg/dL (1.8-2.4); PHOSPHORUS 3.3 mg/dL (2.5-4.9); POTASSIUM 3.7 mmol/L (3.5-5.1); SODIUM SERUM 136 mmol/L (136-145); UREA NITROGEN, BLOOD 34 mg/dL (7-18)
[2017-12-21 10:28] LABS: LYMPHOCYTES % (AUTO) 39.8 % (20.0-44.0); MONOCYTES % (AUTO) 9.1 % (2.0-12.0); NEUTROPHILS % (AUTO) 42.6 % (43.0-81.0); PLATELET COUNT (AUTO) 46 /CMM (150-450)
[2017-12-21 10:29] LABS: BASOPHILS % (AUTO) 2.3 % (0.0-2.0); EOSINOPHILS % (AUTO) 6.2 % (0.0-6.0)
[2017-12-21 10:54] LABS: EOSINOPHILS % (MANUAL) 6 % (0-4); LYMPHOCYTES % (MANUAL) 51 % (16-48); MONOCYTES % (MANUAL) 10 % (0-11.0); NEUTROPHILS % (MANUAL) 33 (42-76)
[2017-12-21] MEDS: SENNOSIDES/DOCUSATE SODIUM 1 TAB TABLET PO PRN (11:35)
[2017-12-21 13:49] VITALS: BP 142/79
[2017-12-21] MEDS ORDERED: IBUP-1957 PO (14:07)
[2017-12-21] MEDS ORDERED: IBUPROFEN 600 MG TABLET PO ONE (14:30)
--- NOTE | 2017-12-21 15:36 | NUR ---
RN NOTES PATIENT A/OX4, AT BEDSIDE, COMPLETED HEMODIALYSIS TODAY WITH 2L OUTPUT, PATIENT IS IN NO DISTRESS. SKIN ASSESSMENT COMPLETED, SKIN DRY AND INTACT, BELONGINGS RECONCILED AND COMPLETE. PIV REMOVED APPLIED GAUZE AND TAPE. PATIENT AND REQUESTED (WITH SIGNED CONSENT) TO FAX DR. RESENDIZ'S NOTES TO [facility] [place] DR. MCKAY. CALLED DR. MCKAY'S OFFICE AND PER CARMEN (REFINERY OPERATOR REFORMING UNIT), SHE WILL RELAY TO DR. MCKAY AND WILL GIVE THE FAMILY MEMBER A CALL FOR THE FOLLOW UP APPOINTMENT. DISCHARGE INSTRUCTIONS PROVIDED TO AND PATIENT, BOTH VERBALIZED UNDERSTANDING, PAPERWORKS SIGNED. PATIENT HAS HAD NO BM THIS PAST 3 DAYS, DR. EDMONDS MADE AWARE, INFORMED PATIENT TO DRINK STOOL SOFTENER, OVER THE COUNTER. NEEDS ATTENDED AND MET, PATIENT ASSISTED TO THE CAR VIA WHEELCHAIR. LEFT THE FACILITY IN STABLE CONDITION.
== END 2017-12-21 15:20 | disposition home or self-care (01) | DRG 314 ==
LOC: ER 08:39 → TELE 11:25 → MED 12-20 08:14
PROVIDERS: ADMIT Internal Medicine Nephrology; ATTEND Internal Medicine Nephrology
PROC: 5A1D70Z Performance of Urinary Filtration, Intermittent, Less than 6 Hours Per Day (ICD-10-PCS; principal; 2017-12-19)
PROC: 5A1D70Z Performance of Urinary Filtration, Intermittent, Less than 6 Hours Per Day (ICD-10-PCS; 2017-12-20)
PROC: 5A1D70Z Performance of Urinary Filtration, Intermittent, Less than 6 Hours Per Day (ICD-10-PCS; 2017-12-21)
DX: I31.3 Pericardial effusion (noninflammatory) (principal); N18.6 End stage renal disease; E87.1 Hypo-osmolality and hyponatremia; I13.2 Hypertensive heart and chronic kidney disease with heart failure and with stage 5 chronic kidney disease, or end stage renal disease; I11.0 Hypertensive heart disease with heart failure; I31.9 Disease of pericardium, unspecified; I50.9 Heart failure, unspecified; I25.10 Atherosclerotic heart disease of native coronary artery without angina pectoris; Z99.2 Dependence on renal dialysis; Z86.79 Personal history of other diseases of the circulatory system; Z95.5 Presence of coronary angioplasty implant and graft; Z98.890 Other specified postprocedural states; E03.9 Hypothyroidism, unspecified; E78.5 Hyperlipidemia, unspecified; Z79.899 Other long term (current) drug therapy; E83.39 Other disorders of phosphorus metabolism; G62.9 Polyneuropathy, unspecified; Z83.3 Family history of diabetes mellitus; Z82.49 Family history of ischemic heart disease and other diseases of the circulatory system; M19.90 Unspecified osteoarthritis, unspecified site; D64.9 Anemia, unspecified
CPT/HCPCS: 36415; 71045-TC; 80048-TC; 80053-TC; 80061-TC; 82728-TC; 83540-TC; 83735-TC; 83880; 84100-TC; 84439-TC; 84443-TC; 84484-TC; 85025-TC; 85730-TC; 87081-TC; 90935-TC; 93307-TC; A4606; A6403; G0378; J1940; Z7610

== ENCOUNTER 2018-03-10 12:55 | Emergency (ER) | payer MEDICARE, BC ==
[~2018-03-10] VITALS: Ht 162.6 cm; Wt 49.9 kg
[~2018-03-10 12:55] MED LIST changes: -ALPR0.5T PO; -ASCO500T9 PO; -ATOR10TA PO; +ATOR40TA PO; -CHOL20004 PO; -FURO20TA4 PO; -HYDR100T27 PO; +IBUP-1957 PO; +ISOS20TA8 PO; -ISOS30TA6 PO; -LANS30CA54 PO; +LEVO125T8 PO; -LEVO50TA8 PO; +NIFE30TA89 PO; -NIFE60TA2 PO; -OMEG1CAP40 PO; -PREG75CA PO; -ZOLP5TAB8 PO
--- NOTE | 2018-03-10 13:10 | NUR ---
PT REFUSING IVC ATH THIS TIME.
[2018-03-10 13:30] LABS: BASOPHILS # (AUTO) 0.1 /CMM (0.0-0.2); BASOPHILS % (AUTO) 2.3 % (0.0-2.0); EOSINOPHILS % (AUTO) 7.7 % (0.0-6.0); HEMATOCRIT 30 % (39-51); HEMOGLOBIN 10.2 g/dL (13.5-17.5); LYMPHOCYTES # (AUTO) 1.7 /CMM (0.8-4.8); LYMPHOCYTES % (AUTO) 39.4 % (20.0-44.0); MEAN CORPUSCULAR HGB CONC 34 g/dl (31.0-36.0); MEAN CORPUSCULAR VOLUME 110 fL (80-96); MONOCYTES # (AUTO) 0.3 /CMM (0.1-1.30); MONOCYTES % (AUTO) 7.5 % (2.0-12.0); NEUTROPHILS # (AUTO) 1.9 /CMM (1.8-8.9); NEUTROPHILS % (AUTO) 43.1 % (43.0-81.0); PLATELET COUNT (AUTO) 93 /CMM (150-450); RED BLOOD CELL COUNT(AUTO) 2.76 MIL/uL (4.5-6.0); WHITE BLOOD COUNT (AUTO) 4.4 K/uL (4.3-11.0)
--- NOTE | 2018-03-10 13:32 | NUR ---
PT TO CT.
[2018-03-10 13:33] LABS: CALCIUM, SERUM 8.4 mg/dL (8.5-10.1); CARBON DIOXIDE 26 mmol/L (21-32); CHLORIDE 103 mmol/L (98-107); CREATININE 3.3 mg/dL (0.6-1.3); GLUCOSE 137 mg/dL (74-106); POTASSIUM 3.7 mmol/L (3.5-5.1); SODIUM SERUM 137 mmol/L (136-145); UREA NITROGEN, BLOOD 27 mg/dL (7-18)
--- NOTE | 2018-03-10 14:53 | NUR ---
PT CLEARED FOR D/C PER .
[2018-03-10 14:55] VITALS: BP 166/86
[2018-03-10 16:08] LABS: EOSINOPHILS % (MANUAL) 12 % (0-4); LYMPHOCYTES % (MANUAL) 36 % (16-48); MONOCYTES % (MANUAL) 5 % (0-11.0); NEUTROPHILS % (MANUAL) 47 (42-76)
[2018-04-09] MEDS ORDERED: LEVO500T75 PO (08:14)
== END 2018-03-10 14:56 | disposition home or self-care (01) ==
LOC: ER 12:59
DX: S05.41XA Penetrating wound of orbit with or without foreign body, right eye, initial encounter (principal); N18.6 End stage renal disease; E03.9 Hypothyroidism, unspecified; L98.8 Other specified disorders of the skin and subcutaneous tissue; Z99.2 Dependence on renal dialysis; Z88.5 Allergy status to narcotic agent; Z88.6 Allergy status to analgesic agent; Z79.899 Other long term (current) drug therapy; W18.39XA Other fall on same level, initial encounter; Y93.89 Activity, other specified; Y92.89 Other specified places as the place of occurrence of the external cause; Y99.8 Other external cause status
CPT/HCPCS: 12011; 36415; 70450; 71045; 80048; 84484; 85025; 85730; 93005; 99284; A4606; A6402

== ENCOUNTER 2018-03-10 17:45 | Emergency (ER) | payer MEDICARE, BC ==
[~2018-03-10] VITALS: Ht 162.6 cm; Wt 49.9 kg
[2018-03-10 18:43] VITALS: BP 169/79
[2018-04-09] MEDS ORDERED: LEVO500T75 PO (08:14)
== END 2018-03-10 18:43 | disposition home or self-care (01) ==
LOC: ER 17:57
DX: S01.111A Laceration without foreign body of right eyelid and periocular area, initial encounter (principal); N18.6 End stage renal disease; E03.9 Hypothyroidism, unspecified; Z98.890 Other specified postprocedural states; Z99.2 Dependence on renal dialysis; Z88.5 Allergy status to narcotic agent; Z88.6 Allergy status to analgesic agent; W18.39XA Other fall on same level, initial encounter; Y93.89 Activity, other specified; Y92.89 Other specified places as the place of occurrence of the external cause; Y99.8 Other external cause status
CPT/HCPCS: Z7502

== ENCOUNTER 2018-04-07 06:58 | Inpatient (IN) | payer MEDICARE, BC ==
[~2018-04-07] VITALS: Ht 165.1 cm; Wt 55.0 kg
--- NOTE | 2018-04-07 07:04 | NUR ---
Pt came to emergency dept. complaining of SOB x 1hr. Pt states he missed his dialysis on . Pt AAXO4. Pt put on the monitor and pulse ox. PT saturating 93% on room air. N/C 2LPm applied.
--- NOTE | 2018-04-07 07:06 | NUR ---
JESSICA MIR at bedside for EVAL.
--- NOTE | 2018-04-07 07:10 | NUR ---
Note kishor in EDM - 04/07/18 at 0721 by KATELYN Pt came to emergency dept. complaining of SOB x 1hr. Pt states he missed his dialysis on . Pt AAXO4. Pt put on the monitor and pulse ox. PT saturating 93% on room air. N/C 2LPm applied.
--- NOTE | 2018-04-07 07:10 | NUR ---
Labs drawn and sent to lab.
[2018-04-07] MEDS ORDERED: ALBUTEROL FS 2.5 MG/3 ML VIAL.NEB ONE (07:17)
[2018-04-07 07:19] LABS: BASOPHILS # (AUTO) 0.1 /CMM (0.0-0.2); BASOPHILS % (AUTO) 1.5 % (0.0-2.0); EOSINOPHILS % (AUTO) 3.5 % (0.0-6.0); HEMATOCRIT 36 % (39-51); HEMOGLOBIN 12.2 g/dL (13.5-17.5); LYMPHOCYTES # (AUTO) 1.2 /CMM (0.8-4.8); LYMPHOCYTES % (AUTO) 26.9 % (20.0-44.0); MEAN CORPUSCULAR HGB CONC 34 g/dl (31.0-36.0); MEAN CORPUSCULAR VOLUME 107 fL (80-96); MONOCYTES # (AUTO) 0.4 /CMM (0.1-1.30); MONOCYTES % (AUTO) 7.6 % (2.0-12.0); NEUTROPHILS # (AUTO) 2.8 /CMM (1.8-8.9); NEUTROPHILS % (AUTO) 60.5 % (43.0-81.0); PLATELET COUNT (AUTO) 89 /CMM (150-450); RED BLOOD CELL COUNT(AUTO) 3.38 MIL/uL (4.5-6.0); WHITE BLOOD COUNT (AUTO) 4.6 K/uL (4.3-11.0)
--- NOTE | 2018-04-07 07:21 | NUR ---
RT at bedside for breathing treatment.
[2018-04-07 07:22] LABS: CALCIUM, SERUM 9.1 mg/dL (8.5-10.1); CARBON DIOXIDE 25 mmol/L (21-32); CHLORIDE 100 mmol/L (98-107); CREATININE 4.3 mg/dL (0.6-1.3); GLUCOSE 131 mg/dL (74-106); POTASSIUM 4.8 mmol/L (3.5-5.1); SODIUM SERUM 135 mmol/L (136-145); UREA NITROGEN, BLOOD 38 mg/dL (7-18)
--- NOTE | 2018-04-07 07:22 | NUR ---
Report Given to ROSA MARIA JUNE for CHAPITO.
[2018-04-07] MEDS ORDERED: ALBUTEROL FS 2.5 MG/3 ML VIAL.NEB CONTNEB ONE (07:30)
[2018-04-07 07:35] LABS: B-TYPE NATRIURETIC PEPTIDE 10006 PG/ML (0-125)
[2018-04-07] MEDS ORDERED: FLUO-120 PO (07:53)
[2018-04-07 07:55] LABS: BAND % (MANUAL) 1 % (0.0-5.0); EOSINOPHILS % (MANUAL) 5 % (0-4); LYMPHOCYTES % (MANUAL) 16 % (16-48); MONOCYTES % (MANUAL) 8 % (0-11.0); NEUTROPHILS % (MANUAL) 70 (42-76)
--- NOTE | 2018-04-07 08:36 | NUR ---
Sleeping NO obvious distress await room assignment/admission
--- NOTE | 2018-04-07 09:39 | NUR ---
Pt going to 323-1. Nurse Knowledge Exchage with Kalani. Pt updated with plan of care/admit No obvious distress noted. No acute changes transported to floor with EMT
--- NOTE | 2018-04-07 09:45 | NUR ---
CALLED [facility] [phone]. ITS MICHAEL TO CALL US BACK.
[2018-04-07] MEDS ORDERED: PIPERACILLIN /TAZOBACTAM 3.375 G in IV D5W 50 ML IV ONE (10:00)
[2018-04-07] MEDS ORDERED: LEVOFLOXACIN 750 MG /D5W 150ML 150 ML IV ONE (10:00)
--- NOTE | 2018-04-07 10:10 | NUR ---
pt. adm. to rm. 323-2.alert and oriented x3.denies pain.plans for dialysis today.
[2018-04-07 10:30] VITALS: BP 168/54
[2018-04-07] MEDS ORDERED: ACETAMINOPHEN 325 MG TABLET PO PRN (11:00)
[2018-04-07] MEDS ORDERED: Z GUARD REMEDY 2 OZ OINT TP PRN (11:00)
[2018-04-07] MEDS ORDERED: ONDANSETRON HCL/PF 4 MG/2 ML VIAL IVP PRN (11:00)
[2018-04-07] MEDS ORDERED: ZOLPIDEM TARTRATE 5 MG TABLET PO PRN (11:00)
[2018-04-07] MEDS ORDERED: MAGNESIUM HYDROXIDE 30 ML UDC PO PRN (11:00)
[2018-04-07 12:00] VITALS: BP 175/84
--- NOTE | 2018-04-07 15:15 | NUR ---
dialysis complete 2l out. no void-bp elevated.call out to script manager regarding bp.changed hrs on routine bp meds.pt. did not have bp meds prior to admit.
[2018-04-07] MEDS: AZITHROMYCIN 250 MG TABLET PO SCH (15:16)
[2018-04-07] MEDS: CARVEDILOL 6.25 MG TABLET PO SCH ×2 (15:16→16:51)
[2018-04-07] MEDS: ISOSORBIDE DINITRATE (20MG) 20 MG TABLET PO SCH ×2 (15:17→17:00)
[2018-04-07] MEDS: NIFEdipine XL (30MG) 30 MG TAB PO SCH (15:18)
--- NOTE | 2018-04-07 15:30 | NUR ---
admit photos done.
[2018-04-07 16:00] VITALS: BP 175/88
[2018-04-07] MEDS: CEFTRIAXONE 2 G in IV NS 0.9% 100 ML IV SCH (16:41)
[2018-04-07] MEDS: FAMOTIDINE (20 MG) 20 MG TABLET PO SCH (16:51)
[2018-04-07] MEDS ORDERED: CARVEDILOL 6.25 MG TABLET PO SCH (17:00)
[2018-04-07] MEDS ORDERED: NIFEdipine XL (30MG) 30 MG TAB PO SCH (17:00)
[2018-04-07] MEDS ORDERED: ISOSORBIDE DINITRATE (20MG) 20 MG TABLET PO SCH (17:00)
[2018-04-07] MEDS ORDERED: CLONIDINE HCL 0.1 MG TABLET PO PRN (17:30)
--- NOTE | 2018-04-07 17:33 | NUR ---
call out to dr. vega regarding elevated bp. order given for clonopin .given dose.
--- NOTE | 2018-04-07 18:30 | NUR ---
will endorse to next rn to monitor bp closely.
[2018-04-07 20:00] VITALS: BP 147/71
--- NOTE | 2018-04-07 20:00 | NUR ---
MAINSTREAMING FACILITATOR NOTES RECEIVED RESIDENT AWAKE IN BED. NO RESPIRATORY DISTRESS NOTED. CALL LIGHT WITHIN REACH. PERIPHERAL LINE INTACT AND PATENT. AV SHUNT ON MARY INTACT WITH NO REDNESS, SWELLING, OR DRAINAGE NOTED AND WITH (+) BRUIT AND THRILL. NO C/O PAIN OR DISCOMFORT. BED IN LOW LOCK SETTING. ALL BELONGINGS KEPT NEAR BEDSIDE. WILL CONTINUE TO MONITOR.
[2018-04-07] MEDS: ATORVASTATIN 40 MG TABLET PO SCH (21:42)
[2018-04-08] VITALS: BP 155/51
[2018-04-08 04:00] VITALS: BP 142/70
--- NOTE | 2018-04-08 06:14 | NUR ---
PUBLIC HEALTH SERVICE OFFICER NOTES PATIENT AWAKE IN BED WITH NO RESPIRATORY DISTRESS NOTED. CALL LIGHT WITHIN REACH. ALL DUE MEDS GIVEN ORDERED WITH NO ASE NOTED. NO C/O PAIN OR DISCOMFORT. VITALS REMAIN WNL. PERIPHERAL LINE INTACT AND PATENT. AV SHUNT ON MARY INTACT WITH NO REDNESS, SWELLING, OR DRAINAGE NOTED AND WITH (+) BRUIT AND THRILL. BED IN LOW LOCK SETTING. ALL BELONGINGS KEPT NEAR BEDSIDE. WILL ENDORSE TO ONCOMING SHIFT.
[2018-04-08 07:02] LABS: BASOPHILS # (AUTO) 0.1 /CMM (0.0-0.2); BASOPHILS % (AUTO) 1.3 % (0.0-2.0); EOSINOPHILS % (AUTO) 1.3 % (0.0-6.0); HEMATOCRIT 32 % (39-51); LYMPHOCYTES # (AUTO) 1.4 /CMM (0.8-4.8); LYMPHOCYTES % (AUTO) 33.9 % (20.0-44.0); MEAN CORPUSCULAR HGB CONC 34 g/dl (31.0-36.0); MEAN CORPUSCULAR VOLUME 107 fL (80-96); MONOCYTES # (AUTO) 0.4 /CMM (0.1-1.30); MONOCYTES % (AUTO) 10.2 % (2.0-12.0); NEUTROPHILS # (AUTO) 2.2 /CMM (1.8-8.9); NEUTROPHILS % (AUTO) 53.3 % (43.0-81.0); PLATELET COUNT (AUTO) 58 /CMM (150-450); RED BLOOD CELL COUNT(AUTO) 3.01 MIL/uL (4.5-6.0)
--- NOTE | 2018-04-08 07:30 | NUR ---
RN OPENING NOTES RECEIVED PATIENT IN BED RESTING. A/OX3, ABLE TO MAKE NEEDS KNOWN. NOT IN ANY FORM OF DISTRESS. NO SOB AT REST BUT SOB WITH EXERTION NOTED. DENIED PAIN OR DISCOMFORT AT THE MOMENT. IV ACCESS INTACT AND PATENT. AV SHUNT ON MARY NOTED, NO SWELLING OR REDNESS. KEPT PATIENT SAFE AND COMFORTABLE. BED IN LOW/LOCKED POSITION, SIDERAILS UPX2, CALL LIGHT IN REACH. WILL CONTINUE TO MONIOTR ACCORDINGLY.
[2018-04-08 07:35] LABS: CALCIUM, SERUM 8.4 mg/dL (8.5-10.1); CARBON DIOXIDE 27 mmol/L (21-32); CHLORIDE 103 mmol/L (98-107); CREATININE 3.4 mg/dL (0.6-1.3); GLUCOSE 89 mg/dL (74-106); MAGNESIUM 1.8 mg/dL (1.8-2.4); PHOSPHORUS 2.8 mg/dL (2.5-4.9); POTASSIUM 4.5 mmol/L (3.5-5.1); SODIUM SERUM 137 mmol/L (136-145); UREA NITROGEN, BLOOD 29 mg/dL (7-18)
[2018-04-08 07:42] VITALS: BP 156/78
[2018-04-08 07:43] LABS: CHOLESTEROL 114 mg/dL (<200); HDL CHOLESTEROL 52 mg/dL (40-60); LDL 54 mg/dL (0-99); TRIGLYCERIDES 50 mg/dL (30-150)
[2018-04-08] MEDS: LEVOTHYROXINE SODIUM 125 MCG TABLET PO SCH (07:43)
[2018-04-08 08:00] VITALS: BP 156/78
[2018-04-08] MEDS: FLUOXETINE HCL 20 MG CAPSULE PO SCH (08:05)
[2018-04-08] MEDS: NIFEdipine XL (30MG) 30 MG TAB PO SCH ×2 (08:05→23:45)
[2018-04-08] MEDS: ISOSORBIDE DINITRATE (20MG) 20 MG TABLET PO SCH ×2 (08:06→17:21)
[2018-04-08] MEDS: FAMOTIDINE (20 MG) 20 MG TABLET PO SCH ×2 (08:06→17:21)
[2018-04-08] MEDS: CARVEDILOL 6.25 MG TABLET PO SCH ×2 (08:07→17:00)
[2018-04-08 09:23] LABS: BAND % (MANUAL) 3 % (0.0-5.0); EOSINOPHILS % (MANUAL) 1 % (0-4); LYMPHOCYTES % (MANUAL) 31 % (16-48); MONOCYTES % (MANUAL) 7 % (0-11.0); NEUTROPHILS % (MANUAL) 58 (42-76)
[2018-04-08] MEDS: LACTOBACILLUS RHAMNOSUS GG 1 EACH CAP.SPRINK PO SCH ×2 (10:26→17:20)
[2018-04-08] MEDS ORDERED: BISACODYL SUPP (10 MG) 10 MG/SUPP.RECT SUPP.RECT RC PRN ×2 (10:30→11:00)
[2018-04-08] MEDS ORDERED: PHENYLEPHRINE/SHK LV/MO/PET,WH 30 GM TUBE RC PRN (11:00)
[2018-04-08] MEDS ORDERED: BISMUTH SUBSALICYLATE 262 MG/15 ML BOTTLE PO PRN (15:00)
[2018-04-08] MEDS ORDERED: MAG HYDROX/AL HYDROX/SIMETH 30 ML UDC PO PRN (15:30)
[2018-04-08 16:00] VITALS: BP 140/69
[2018-04-08] MEDS: AZITHROMYCIN 250 MG TABLET PO SCH (17:19)
[2018-04-08] MEDS: CEFTRIAXONE 2 G in IV NS 0.9% 100 ML IV SCH (17:25)
--- NOTE | 2018-04-08 17:31 | NUR ---
RN NOTES PM BP MEDS HELD. WILL HAVE HEMODIALYSIS
--- NOTE | 2018-04-08 19:14 | NUR ---
RN CLOSING NOTES PATIENT IN STABLE CONDITION. NO SIGNIFICANT CHANGE DURING THE SHIFT. ALL NEEDS ATTENDED AND PROVIDED. ALL DUE MEDICATIONS ADMINISTERED ORDERED. KEPT PATIENT SAFE AND COMFORTABLE. BED IN LOW/LOCKED POSITION, SIDERAILS UP X2, BED ALARM ON. HOB ELEVATED. CALL LIGHT IN REACH. ENDORSED TO NIGHT RN FOR CHAPITO.
--- NOTE | 2018-04-08 19:30 | NUR ---
RECEIVED PATIENT IN BED AWAKE, AO X 3, ABLE TO MAKE NEEDS KNOWN. NO ACUTE DISTRESS NOTED. DENIES ANY PAIN AT THIS TIME. IV SITE PATENT, INTACT; FLUSHED. SAFETY REMINDERS GIVEN. ON LOW BED WITH BILATERAL UPPER SIDE RAILS UP. CALL GARCIA WITHIN EASY REACH. WILL CONTINUE TO MONITOR.
[2018-04-08 20:00] VITALS: BP 136/76
[2018-04-08] MEDS: ATORVASTATIN 40 MG TABLET PO SCH (23:45)
--- NOTE | 2018-04-09 00:38 | NUR ---
REPORT GIVEN TO ISIDORO JUNE FOR CONTINUITY OF CARE.
--- NOTE | 2018-04-09 00:39 | NUR ---
MS RN NOTES Received patient asleep on Almanza's position on bed with O2 inhalation. No SOB/respiratory distress noted. Bed in lowest position, locked, siderails up. Call light at bedside. Will continue to monitor accordingly.
--- NOTE | 2018-04-09 06:55 | NUR ---
MS RN CLOSING NOTES Patient remained asleep on bed with O2 inhalation. No SOB/respiratory distress noted. All needs attended. No new complaints made. Endorsed to the next shift.
--- NOTE | 2018-04-09 07:05 | NUR ---
MS RN INITIAL NOTES Report received at bedside. Patient received in bed, awake, and comfortable. Alert and oriented x4, verbally responsive. Anxious to leave. Denies any paint. Safety measures in place. Will continue to monitor and assess patient.
[2018-04-09] MEDS: LEVOTHYROXINE SODIUM 125 MCG TABLET PO SCH (07:39)
[2018-04-09 08:00] VITALS: BP 126/64
[2018-04-09 08:03] LABS: CALCIUM, SERUM 8.7 mg/dL (8.5-10.1); CARBON DIOXIDE 29 mmol/L (21-32); CHLORIDE 100 mmol/L (98-107); CREATININE 2.6 mg/dL (0.6-1.3); GLUCOSE 86 mg/dL (74-106); MAGNESIUM 1.9 mg/dL (1.8-2.4); PHOSPHORUS 2.5 mg/dL (2.5-4.9); POTASSIUM 3.7 mmol/L (3.5-5.1); SODIUM SERUM 138 mmol/L (136-145); UREA NITROGEN, BLOOD 18 mg/dL (7-18)
[2018-04-09 08:04] LABS: BASOPHILS % (AUTO) 1.1 % (0.0-2.0); EOSINOPHILS % (AUTO) 2.3 % (0.0-6.0); HEMATOCRIT 36 % (39-51); LYMPHOCYTES # (AUTO) 1.2 /CMM (0.8-4.8); MEAN CORPUSCULAR HGB CONC 34 g/dl (31.0-36.0); MEAN CORPUSCULAR VOLUME 107 fL (80-96); MONOCYTES # (AUTO) 0.3 /CMM (0.1-1.30); MONOCYTES % (AUTO) 6.7 % (2.0-12.0); NEUTROPHILS # (AUTO) 2.4 /CMM (1.8-8.9); NEUTROPHILS % (AUTO) 59.9 % (43.0-81.0); PLATELET COUNT (AUTO) 59 /CMM (150-450); RED BLOOD CELL COUNT(AUTO) 3.33 MIL/uL (4.5-6.0)
[2018-04-09] MEDS ORDERED: LEVO500T75 PO (08:14)
[2018-04-09] MEDS: NIFEdipine XL (30MG) 30 MG TAB PO SCH (08:58)
[2018-04-09] MEDS: CARVEDILOL 6.25 MG TABLET PO SCH (08:58)
[2018-04-09] MEDS: FAMOTIDINE (20 MG) 20 MG TABLET PO SCH (08:58)
[2018-04-09 08:59] VITALS: BP 126/64
[2018-04-09] MEDS: FLUOXETINE HCL 20 MG CAPSULE PO SCH (08:59)
[2018-04-09] MEDS: LACTOBACILLUS RHAMNOSUS GG 1 EACH CAP.SPRINK PO SCH (08:59)
[2018-04-09] MEDS: ISOSORBIDE DINITRATE (20MG) 20 MG TABLET PO SCH (08:59)
[2018-04-09] MEDS ORDERED: DOCUSATE SODIUM 100 MG CAPSULE PO SCH (09:00)
[2018-04-09 10:06] LABS: EOSINOPHILS % (MANUAL) 2 % (0-4); LYMPHOCYTES % (MANUAL) 12 % (16-48); MONOCYTES % (MANUAL) 5 % (0-11.0); NEUTROPHILS % (MANUAL) 81 (42-76)
--- NOTE | 2018-04-09 10:55 | NUR ---
MS CIGARETTE FILTER INSPECTOR NOTES Patient is cleared for discharge by MD. at bedside waiting for discharge papers. Discharge instructions provided to patient and : verbalized understanding and signed by patient. Patient is alert and oriented x4, verbally responsive. IV removed: cath tip intact with no bleeding noted. Denies any pain. Belongings with - belongings form signed by patient. Photos in chart. No SOB noted. Not in any type of distress. Assisted with dressing and transported to [facility] via wheelchair in stable condition. All questions and concerns addressed.
== END 2018-04-09 10:52 | disposition home health service (06) | DRG 193 ==
LOC: ER 06:59 → TELE 09:46 → MED 04-08 08:46
PROVIDERS: ADMIT Registered Nurse; ATTEND Internal Medicine
PROC: 5A1D70Z Performance of Urinary Filtration, Intermittent, Less than 6 Hours Per Day (ICD-10-PCS; principal; 2018-04-07)
PROC: 5A1D70Z Performance of Urinary Filtration, Intermittent, Less than 6 Hours Per Day (ICD-10-PCS; 2018-04-08)
DX: J15.9 Unspecified bacterial pneumonia (principal); N18.6 End stage renal disease; I13.2 Hypertensive heart and chronic kidney disease with heart failure and with stage 5 chronic kidney disease, or end stage renal disease; N25.81 Secondary hyperparathyroidism of renal origin; I50.32 Chronic diastolic (congestive) heart failure; K21.9 Gastro-esophageal reflux disease without esophagitis; D63.1 Anemia in chronic kidney disease; E03.9 Hypothyroidism, unspecified; E78.5 Hyperlipidemia, unspecified; F32.9 Major depressive disorder, single episode, unspecified; F41.9 Anxiety disorder, unspecified; I25.10 Atherosclerotic heart disease of native coronary artery without angina pectoris; J45.909 Unspecified asthma, uncomplicated; Z91.15 Patient's noncompliance with renal dialysis; Z99.2 Dependence on renal dialysis; G62.9 Polyneuropathy, unspecified; E87.70 Fluid overload, unspecified
CPT/HCPCS: 36415; 71045-TC; 80048-TC; 80061-TC; 83605-TC; 83735-TC; 83880; 84100-TC; 84484-TC; 85025-TC; 87040-TC; 87081-TC; 87400; 90935-TC; 92611-TC; 93307-TC; G0378; J0696; J1956; J2543; J7030; J7050; J7060

== ENCOUNTER 2018-08-02 18:06 | Emergency (ER) | payer MEDICARE, BC ==
[~2018-08-02] VITALS: Ht 162.6 cm; Wt 50.3 kg
[~2018-08-02 18:06] MED LIST changes: +FLUO-120 PO; -IBUP-1957 PO; +LEVO500T75 PO
--- NOTE | 2018-08-02 18:08 | NUR ---
PT TO ER BED 04 C/O LEFT FOREARM BLEEDING FROM DIALYSIS PORT. PT STATES HE FINISHED DIALYSIS AND WENT HOME BUT GAUZE AND BANDAGES PLACED AT DIALYSIS CENTER WAS ALREADY SOAKED. PT DENIES PAIN, DIZZINESS OR ANY DISCOMFORT. PT GOWNED AND PLACED ON MONITOR. VSS. DR LARSON AT BEDSIDE.
[2018-08-02] MEDS ORDERED: GELATIN SPONGE,ABSORBABLE 1 SPONGE SPONGE TP ONE ×2 (18:17→18:25)
--- NOTE | 2018-08-02 18:27 | NUR ---
IV LINE STARTED, BLOOD DRAWN AND SENT TO LAB.
[2018-08-02 18:50] LABS: BASOPHILS % (AUTO) 1.2 % (0.0-2.0); EOSINOPHILS % (AUTO) 7.8 % (0.0-6.0); HEMATOCRIT 35 % (39-51); LYMPHOCYTES # (AUTO) 1.4 /CMM (0.8-4.8); LYMPHOCYTES % (AUTO) 37.9 % (20.0-44.0); MEAN CORPUSCULAR HGB CONC 34 g/dl (31.0-36.0); MEAN CORPUSCULAR VOLUME 103 fL (80-96); MONOCYTES # (AUTO) 0.3 /CMM (0.1-1.30); MONOCYTES % (AUTO) 8.3 % (2.0-12.0); NEUTROPHILS # (AUTO) 1.6 /CMM (1.8-8.9); NEUTROPHILS % (AUTO) 44.8 % (43.0-81.0); PLATELET COUNT (AUTO) 52 /CMM (150-450); RED BLOOD CELL COUNT(AUTO) 3.43 MIL/uL (4.5-6.0); WHITE BLOOD COUNT (AUTO) 3.6 K/uL (4.3-11.0)
[2018-08-02 18:57] LABS: CALCIUM, SERUM 8.5 mg/dL (8.5-10.1); CARBON DIOXIDE 24 mmol/L (21-32); CHLORIDE 102 mmol/L (98-107); CREATININE 2.8 mg/dL (0.6-1.3); GLUCOSE 105 mg/dL (74-106); SODIUM SERUM 136 mmol/L (136-145); UREA NITROGEN, BLOOD 22 mg/dL (7-18)
[2018-08-02] MEDS ORDERED: DESMOPRESSIN 15 MCG in IV NS 0.9% 50 ML IV ONE (19:00)
--- NOTE | 2018-08-02 19:08 | NUR ---
GILDARDO [phone]
--- NOTE | 2018-08-02 19:23 | NUR ---
REPORT GIVEN TO MELLO JUNE.
[2018-08-02] MEDS ORDERED: DDAVP 20 MCG in IV NS 50 ML IV ONE (19:30)
[2018-08-02 19:36] LABS: BAND % (MANUAL) 1 % (0.0-5.0); LYMPHOCYTES % (MANUAL) 38 % (16-48); MONOCYTES % (MANUAL) 7 % (0-11.0); NEUTROPHILS % (MANUAL) 48 (42-76)
[2018-08-02 19:37] LABS: EOSINOPHILS % (MANUAL) 6 % (0-4)
--- NOTE | 2018-08-02 20:40 | NUR ---
Patient discharged to home in stable condition. Written and verbal after care instructions given. Patient verbalizes understanding of instruction. Bleeding stopped LH reinforced. vs stable.
[2018-08-02 20:59] VITALS: BP 138/75
== END 2018-08-02 21:00 | disposition home or self-care (01) ==
LOC: ER 18:07
DX: T82.838A Hemorrhage due to vascular prosthetic devices, implants and grafts, initial encounter (principal); S51.832A Puncture wound without foreign body of left forearm, initial encounter; I12.0 Hypertensive chronic kidney disease with stage 5 chronic kidney disease or end stage renal disease; N18.6 End stage renal disease; D69.3 Immune thrombocytopenic purpura; E03.9 Hypothyroidism, unspecified; Z99.2 Dependence on renal dialysis; Z98.890 Other specified postprocedural states; Z88.5 Allergy status to narcotic agent; Z88.6 Allergy status to analgesic agent; X58.XXXA Exposure to other specified factors, initial encounter; Y93.89 Activity, other specified; Y92.89 Other specified places as the place of occurrence of the external cause; Y99.8 Other external cause status
CPT/HCPCS: 36415; 80048; 85025; 85730; 86850; 96365; 99283; A4216; A6402; A6403; J2597

== ENCOUNTER 2018-09-08 18:58 | Emergency (ER) | payer MEDICARE, BC ==
[~2018-09-08] VITALS: Ht 162.6 cm; Wt 5.0 kg
[~2018-09-08 18:58] MED LIST changes: -FLUO-120 PO; -LEVO500T75 PO
[2018-09-08 19:10] VITALS: BP 170/94
--- NOTE | 2018-09-08 19:10 | NUR ---
PT BIBRA 89 FROM HOME FOR NOSE LAC S/P GLF AT HOME. "HIT FACE ON CARPET". PT AOX4. BLEEDING NOTED. PT ON MONITOR IN BED 2. WILL CONTINUE TO MONITOR.
[2018-09-08] MEDS ORDERED: LIDOCAINE 1%-EPI 1:100,000 20 ML VIAL ONE (19:34)
--- NOTE | 2018-09-08 19:40 | NUR ---
DR. PEREZ AT BEDSIDE FOR LAC REPAIR
--- NOTE | 2018-09-08 19:50 | NUR ---
PHLEB AT BEDSIDE FOR LAB DRAW
[2018-09-08] MEDS ORDERED: TDAP [DIPH/PERTUSSIS/TET] 0.5 ML VIAL IM ONE ×2 (20:00→20:04)
[2018-09-08] MEDS ORDERED: LIDOCAINE 1%-EPI 1:100,000 20 ML VIAL TP ONE (20:00)
[2018-09-08 20:14] LABS: BASOPHILS # (AUTO) 0.1 /CMM (0.0-0.2); BASOPHILS % (AUTO) 1.2 % (0.0-2.0); EOSINOPHILS % (AUTO) 5.9 % (0.0-6.0); HEMATOCRIT 39 % (39-51); LYMPHOCYTES # (AUTO) 1.9 /CMM (0.8-4.8); MEAN CORPUSCULAR HGB CONC 33 g/dl (31.0-36.0); MEAN CORPUSCULAR VOLUME 106 fL (80-96); MONOCYTES # (AUTO) 0.3 /CMM (0.1-1.30); MONOCYTES % (AUTO) 5.8 % (2.0-12.0); NEUTROPHILS # (AUTO) 2.9 /CMM (1.8-8.9); NEUTROPHILS % (AUTO) 52.1 % (43.0-81.0); PLATELET COUNT (AUTO) 52 /CMM (150-450); RED BLOOD CELL COUNT(AUTO) 3.69 MIL/uL (4.5-6.0); WHITE BLOOD COUNT (AUTO) 5.5 K/uL (4.3-11.0)
--- NOTE | 2018-09-08 20:28 | NUR ---
PT RETURNED FROM CT. TOLERATED WELL.
[2018-09-08 20:42] LABS: CALCIUM, SERUM 8.6 mg/dL (8.5-10.1); CARBON DIOXIDE 29 mmol/L (21-32); CHLORIDE 99 mmol/L (98-107); CREATININE 2.8 mg/dL (0.6-1.3); GLUCOSE 114 mg/dL (74-106); POTASSIUM 4.2 mmol/L (3.5-5.1); SODIUM SERUM 137 mmol/L (136-145); UREA NITROGEN, BLOOD 18 mg/dL (7-18)
[2018-09-08 20:48] LABS: EOSINOPHILS % (MANUAL) 2 % (0-4); LYMPHOCYTES % (MANUAL) 37 % (16-48); MONOCYTES % (MANUAL) 4 % (0-11.0); NEUTROPHILS % (MANUAL) 57 (42-76)
--- NOTE | 2018-09-08 21:58 | NUR ---
Patient discharged to home in stable condition. Written and verbal after care instructions given. Patient verbalizes understanding of instruction. PT AMBULATORY ACCOMPANIED BY .
== END 2018-09-08 22:00 | disposition home or self-care (01) ==
LOC: ER 18:58
DX: S01.21XA Laceration without foreign body of nose, initial encounter (principal); D69.6 Thrombocytopenia, unspecified; I12.0 Hypertensive chronic kidney disease with stage 5 chronic kidney disease or end stage renal disease; N18.6 End stage renal disease; Z99.2 Dependence on renal dialysis; E03.9 Hypothyroidism, unspecified; Z98.890 Other specified postprocedural states; Z88.5 Allergy status to narcotic agent; Z88.6 Allergy status to analgesic agent; Z88.8 Allergy status to other drugs, medicaments and biological substances; Z79.899 Other long term (current) drug therapy; W01.198A Fall on same level from slipping, tripping and stumbling with subsequent striking against other object, initial encounter; Y93.89 Activity, other specified; Y92.89 Other specified places as the place of occurrence of the external cause; Y99.8 Other external cause status
CPT/HCPCS: 12011; 36415; 70450; 71045; 72125; 80048; 85025; 85730; 90471; 90715; 99284; A6402; J3490

== ENCOUNTER 2018-09-18 15:47 | Emergency (ER) | payer MEDICARE, BC ==
[~2018-09-18] VITALS: Ht 162.6 cm; Wt 47.6 kg
--- NOTE | 2018-09-18 15:58 | NUR ---
PT BIBFAMILY FOR GEN WEAKNESS; PT AAOX4, NAD NOTED, AMBULATORY WITH STEADY GAIT, VSS, PENDING MD THOMAS
[2018-09-18 16:59] LABS: BASOPHILS # (AUTO) 0.1 /CMM (0.0-0.2); BASOPHILS % (AUTO) 1.5 % (0.0-2.0); EOSINOPHILS % (AUTO) 7.1 % (0.0-6.0); HEMATOCRIT 43 % (39-51); HEMOGLOBIN 14.4 g/dL (13.5-17.5); LYMPHOCYTES # (AUTO) 0.7 /CMM (0.8-4.8); MEAN CORPUSCULAR HGB CONC 33 g/dl (31.0-36.0); MEAN CORPUSCULAR VOLUME 104 fL (80-96); MONOCYTES # (AUTO) 0.3 /CMM (0.1-1.30); MONOCYTES % (AUTO) 7.4 % (2.0-12.0); NEUTROPHILS # (AUTO) 2.2 /CMM (1.8-8.9); PLATELET COUNT (AUTO) 70 /CMM (150-450); RED BLOOD CELL COUNT(AUTO) 4.15 MIL/uL (4.5-6.0); WHITE BLOOD COUNT (AUTO) 3.6 K/uL (4.3-11.0)
[2018-09-18 17:08] LABS: CALCIUM, SERUM 8.7 mg/dL (8.5-10.1); CARBON DIOXIDE 27 mmol/L (21-32); CHLORIDE 102 mmol/L (98-107); CREATININE 2.3 mg/dL (0.6-1.3); GLUCOSE 109 mg/dL (74-106); POTASSIUM 3.3 mmol/L (3.5-5.1); SODIUM SERUM 138 mmol/L (136-145); UREA NITROGEN, BLOOD 13 mg/dL (7-18)
[2018-09-18 17:14] LABS: ALANINE AMINOTRANSFERASE 20 U/L (12-78); ALBUMIN 3.1 g/dL (3.4-5.0); ALKALINE PHOSPHATASE 130 U/L (46-116); ASPARTATE AMINOTRANSFERASE 26 U/L (15-37); BILIRUBIN,DIRECT 0.3 mg/dL (0.0-0.2); BILIRUBIN,TOTAL 1.4 mg/dL (0.2-1.0); TOTAL PROTEIN, SERUM 7.3 g/dL (6.4-8.2)
--- NOTE | 2018-09-18 19:21 | NUR ---
Patient discharged to home in stable condition. Written and verbal after care instructions given. Patient verbalizes understanding of instruction.
[2018-09-18 19:51] VITALS: BP 139/80
[2018-09-18 20:12] LABS: BAND % (MANUAL) 1 % (0.0-5.0); EOSINOPHILS % (MANUAL) 3 % (0-4); LYMPHOCYTES % (MANUAL) 25 % (16-48); MONOCYTES % (MANUAL) 4 % (0-11.0); NEUTROPHILS % (MANUAL) 67 (42-76)
== END 2018-09-18 19:53 | disposition home or self-care (01) ==
LOC: ER 15:55
DX: R53.1 Weakness (principal); R51 Headache; I12.0 Hypertensive chronic kidney disease with stage 5 chronic kidney disease or end stage renal disease; N18.6 End stage renal disease; E03.9 Hypothyroidism, unspecified; D69.6 Thrombocytopenia, unspecified; Z98.890 Other specified postprocedural states; Z88.5 Allergy status to narcotic agent; Z88.6 Allergy status to analgesic agent
CPT/HCPCS: 36415; 70450-TC; 71045-TC; 80048-TC; 80076-TC; 85025-TC

== ENCOUNTER 2018-09-21 02:25 | Inpatient (IN) | payer MEDICARE, BC ==
[~2018-09-21] VITALS: Ht 162.6 cm; Wt 50.1 kg
--- NOTE | 2018-09-21 02:40 | NUR ---
Note shandaone in EDM - 09/21/18 at 0259 by JOSÉ BIBS WITH FROM HOME. TO ER BED 10. AAOX4. BREATHING SHALLOW AND RAPID. C/O SOB AFTER MISSING HD YESTERDAY. PT GOES TO HD QT, TH, [facility]. SHIVA CP. NO N/V/D.MD AT BEDSIDE. ORDERS RECEIVED
--- NOTE | 2018-09-21 02:40 | NUR ---
BIBS WITH FROM HOME. TO ER BED 10. AAOX4. BREATHING SHALLOW AND RAPID. C/O SOB AFTER MISSING HD YESTERDAY. PT GOES TO HD QT, TH, [facility]. PT NOTED WITH BILAT WHEEZING. NO COUGH. DENIES CP. NO N/V/D. PLACED ON O2 VIA NC. AT BEDSIDE. ORDERS RECEIVED
[2018-09-21] MEDS ORDERED: ALBUTEROL FS 2.5 MG/3 ML VIAL.NEB ONE (02:41)
[2018-09-21 02:51] LABS: BASOPHILS # (AUTO) 0.1 /CMM (0.0-0.2); BASOPHILS % (AUTO) 1.3 % (0.0-2.0); EOSINOPHILS % (AUTO) 10.8 % (0.0-6.0); HEMATOCRIT 39 % (39-51); LYMPHOCYTES # (AUTO) 1.3 /CMM (0.8-4.8); LYMPHOCYTES % (AUTO) 23.7 % (20.0-44.0); MEAN CORPUSCULAR HGB CONC 34 g/dl (31.0-36.0); MEAN CORPUSCULAR VOLUME 103 fL (80-96); MONOCYTES # (AUTO) 0.3 /CMM (0.1-1.30); MONOCYTES % (AUTO) 5.4 % (2.0-12.0); NEUTROPHILS # (AUTO) 3.3 /CMM (1.8-8.9); NEUTROPHILS % (AUTO) 58.8 % (43.0-81.0); PLATELET COUNT (AUTO) 71 /CMM (150-450); RED BLOOD CELL COUNT(AUTO) 3.79 MIL/uL (4.5-6.0); WHITE BLOOD COUNT (AUTO) 5.5 K/uL (4.3-11.0)
[2018-09-21] MEDS ORDERED: FUROSEMIDE 40 MG/4 ML VIAL ONE (02:52)
--- NOTE | 2018-09-21 02:55 | NUR ---
XRAY AT BEDSIDE
[2018-09-21] MEDS ORDERED: ALBUTEROL FS 2.5 MG/3 ML VIAL.NEB NEB ONE (03:00)
[2018-09-21] MEDS ORDERED: FUROSEMIDE 40 MG/4 ML VIAL IV ONE (03:00)
[2018-09-21 03:01] LABS: EOSINOPHILS % (MANUAL) 9 % (0-4); LYMPHOCYTES % (MANUAL) 20 % (16-48); MONOCYTES % (MANUAL) 4 % (0-11.0); NEUTROPHILS % (MANUAL) 67 (42-76)
[2018-09-21 03:05] LABS: CALCIUM, SERUM 8.6 mg/dL (8.5-10.1); CARBON DIOXIDE 26 mmol/L (21-32); CHLORIDE 101 mmol/L (98-107); CREATININE 4.3 mg/dL (0.6-1.3); GLUCOSE 108 mg/dL (74-106); POTASSIUM 4.5 mmol/L (3.5-5.1); SODIUM SERUM 135 mmol/L (136-145); UREA NITROGEN, BLOOD 35 mg/dL (7-18)
[2018-09-21 03:13] LABS: ALANINE AMINOTRANSFERASE 23 U/L (12-78); ALBUMIN 3.1 g/dL (3.4-5.0); ALKALINE PHOSPHATASE 137 U/L (46-116); ASPARTATE AMINOTRANSFERASE 29 U/L (15-37); B-TYPE NATRIURETIC PEPTIDE 9238 PG/ML (0-125); BILIRUBIN,DIRECT 0.3 mg/dL (0.0-0.2); BILIRUBIN,TOTAL 1.1 mg/dL (0.2-1.0); TOTAL PROTEIN, SERUM 7.5 g/dL (6.4-8.2)
--- NOTE | 2018-09-21 03:14 | NUR ---
AV SHUNT ON L UPPER ARM
--- NOTE | 2018-09-21 04:00 | NUR ---
REPORT GIVEN TO SLADE ANGEL FOR CHAPITO. PT GOING TO 307
--- NOTE | 2018-09-21 04:04 | NUR ---
ELDON () [phone] CONTACT FOR ANY UPDATES Addendum: 09/21/18 at 0405 by JOSÉ HOME: [phone]
[2018-09-21 04:30] VITALS: BP 160/91
--- NOTE | 2018-09-21 04:34 | NUR ---
PT TRANSPORTED TO UNIT ON [facility] WITH EMT AND RN AT BEDSIDE W/ ACLS PROTOCOL. NAD NOTED DURING TRANSPORT. PT AMBULATED FROM [place] TO BED.
--- NOTE | 2018-09-21 05:19 | NUR ---
TELE/RN RECEIVED PATIENT FROM [place] [facility]IA [facility]. PATIENT WAS AWAKE, ALERT, ORIENTED X 3, COMFORTABLE, NO C/O PAIN, NO DISTRESS NOTED, PATIENT UNABLE TO OBTAIN SOME ADMITTING INFORMATIONS FROM THE PATIENT, HENCE SOME INFORMATIONS WERE OBTAINED FROM [place]. NOTE, TAUGHT THE USE OF CALL LIGHT, PLACED IT AT BEDSIDE WITHIN REACH, FALL PRECAUTIONS PER PROTOCOL, WILL MONITOR.
--- NOTE | 2018-09-21 06:19 | NUR ---
MS/RN HD IN PROGRESS AT THIS TIME. ALL NEEDS ATTENDED. WILL CONTINUE TO MONITOR.
--- NOTE | 2018-09-21 07:26 | NUR ---
RECEIVER OPENING NOTES PATIENT IN BED RESTING COMFORTABLY. PATIENT CURRENTLY ON HEMODIALYSIS AT THIS TIME. PATIENT BREATHING IS EVEN AND UNLABORED. PATIENT BREATHING ON OXYGEN NC AT 2L. PATIENT IN NO ACUTE DISTRESS. NO SOB NOTED. PATIENT ON CARDIAC MONITORING SR. SAFETY PRECAUTIONS IN PLACE. PATIENT BED LOCKED AND IN LOWEST POSITION. CALL LIGHT WITHIN REACH. WILL CONTINUE TO MONITOR.
[2018-09-21 08:00] VITALS: BP 163/88
[2018-09-21] MEDS ORDERED: LEVOTHYROXINE SODIUM 125 MCG TABLET PO SCH (08:30)
[2018-09-21] MEDS ORDERED: CARVEDILOL 6.25 MG TABLET PO SCH (09:00)
[2018-09-21] MEDS ORDERED: FAMOTIDINE (20 MG) 20 MG TABLET PO SCH (09:00)
[2018-09-21] MEDS ORDERED: NIFEdipine XL (30MG) 30 MG TAB PO SCH (09:00)
[2018-09-21] MEDS ORDERED: ISOSORBIDE DINITRATE (20MG) 20 MG TABLET PO SCH (09:00)
--- NOTE | 2018-09-21 11:05 | NUR ---
WOUND CARE CONSULT: PT PRESENTS WITH INCONTINENCE, DRY SCABS TO LEFT FOREARM AND NASAL BRIDGE, PRESENT ON ADMISSION. DEFER TO VEGETABLE PICKER FOR LEFT ARM SHUNT. NO DRAINAGE NOTED TO SHUNT DRESSING/PAPER TAPE. RECOMMENDATIONS MADE FOR SKIN PROTECTION. DISCUSSED WITH NURSING STAFF. WILL SEE PRN. MIR IN AGREEMENT WITH PLAN OF CARE. Addendum: 09/21/18 at 1107 by TAMAR SHAH WNDNU Amended: Links added.
[2018-09-21] MEDS ORDERED: Z GUARD REMEDY 2 OZ OINT TP SCH (11:30)
[2018-09-21] MEDS ORDERED: Z GUARD REMEDY 2 OZ OINT TP PRN (11:30)
[2018-09-21] MEDS ORDERED: MINERAL OIL/PETROLATUM,WHITE 120 GM JAR TP SCH (11:30)
--- NOTE | 2018-09-21 12:15 | NUR ---
MS RN NOTE PAGED HD NURSE SLIME TO REQUEST THAT HE LOOK AT AV FISTULA, PER SLIME HD NURSE BILL WILL BE BY SHORTLY. BLEEDING CONTROLLED WITH ADDITIONAL KERLIX AND CLAMPS, POSITIVE FOR BRUIT AND THRILL AT THIS TIME.
--- NOTE | 2018-09-21 12:17 | NUR ---
MS MEAT CUTTER APPRENTICE NURSE NOTE PER CLIF AT THE BEDSIDE, THE PT STOOD UP OUR OF BED WHILE HER BACK WAS TURNED TO HIM WITHOUT ASKING FOR ASSISTANCE. WHEN HE STOOD UP HE STATED "I'M DIZZY" SO SHE GRABBED HIM, INCLUDING GRABBING HIS LEFT ARM WHERE THE FISTULA. PT IS S/P HD THIS MORNING. ACCORDING TO CLIF, WHEN SHE GRABBED THE ARM HE BEGAN BLEEDING WHICH IS WHEN SHE CALLED FOR ASSISTANCE. SLADE CONTE, ANIKET Friedman CNA, AND SLADE VASQUEZ ASSISTED THE PT TO A CHAIR AND CONTROLLED BLEEDING OF THE AV FISTULA WITH KERLIX AND PRESSURE. PT VS OBTAINED, BP: 130/71, HR: 76, R: 22 SP02 97% ON ROOM AIR. THE PT DID NOT FALL, DID NOT HIT HIS HEAD AND DID NOT EVER AT ANY POINT TOUCH THE GROUND OR HIT ANYTHING AROUND HIM. REVIEWED USE OF CALL LIGHT SYSTEM WITH THE PT AND CLIF AT THE BEDSIDE INCLUDING TO NEVER EXIT THE BED OR ATTEMPT TO EXIT THE BED WITHOUT STAFF ASSISTANCE. PT THE AND PT BOTH VERBALIZED AGREEMENT AND UNDERSTANDING.
--- NOTE | 2018-09-21 12:20 | NUR ---
MS RN NOTE PATIENTS CALLED FOR HELP STATING PATIENT ALMOST FELL. INFORMED PATIENT PRIOR TO KEEP PATIENT IN BED BECAUSE OF WEAKNESS IN THE LEGS. WHEN I CAME INTO THE ROOM PATIENT WAS BLEEDING FROM THE LEFT AV FISTULA. PATIENTS STATES SHE GRABBED PATIENTS FOREARM AND IT STARTED BLEEDING. PATIENT HAD HEMODIALYSIS AT 0615 AND FINISHED AT 0930. PATIENT BLEEDING WAS CONTROLLED. PATIENT ASSISTED INTO CHAIR. PATIENT CLEANED AND MADE COMFORTABLE. VITAL SIGNS OBTAINED AND VITAL SIGNS WITHIN NORMAL LIMITS. PATIENT IN NO ACUTE DISTRESS. NO SOB NOTED.INFORMED PATIENT AND FOR PATIENT TO STAY IN BED. EDUCATION PROVIDED BEFORE AND AFTER INCIDENT ABOUT PATIENT SAFETY AND FALLS. INFORMED DR. PRECIADO OF PATIENT INCIDENT. MADE AWARE. DRUM SANDER SETTER MADE AWARE. CHARGE NURSE MADE AWARE.
[2018-09-21 12:30] VITALS: BP 130/71
--- NOTE | 2018-09-21 12:34 | NUR ---
MS RN NOTE PER NURSING ENGINEERING MANAGER [employer] ELLE GUILLEN TO TRANSFER PT TO [facility] TO BE WITH 1:1 SITTER.
--- NOTE | 2018-09-21 12:35 | NUR ---
MS RN NOTE PAGED , AWAITING RESPONSE.
--- NOTE | 2018-09-21 13:10 | NUR ---
MS RN NOTE PATIENT BLEEDING FROM LEFT AV FISTULA IS CONTROLLED. VITAL SIGNS WITHIN NORMAL LIMITS. PATIENT TRANSFERRED TO [place] [id number]. PLACED ON A 1:1 SITTER. ACCOMPANIED PATIENT. VERBALIZED SAFETY PRECAUTIONS TO PATIENT AND . PATIENT IN NO ACUTE DISTRESS. NO SOB NOTED. PATIENT BREATHING IS EVEN AND UNLABORED. MADE AWARE. REPORTED MINERAL OIL TO BE BROUGHT TO PATIENT WHEN MADE READILY AVAILABLE FROM PHARMACY. ALL BELONGINGS BROUGHT WITH PATIENT. SAFETY PRECAUTIONS IN PLACE. ENDORSED CARE TO HEMATNH JUNE FOR [place].
--- NOTE | 2018-09-21 13:15 | NUR ---
RN NOTE PT WAS RECEIVED AT THIS TIME FROM 3W, BROUGHT VIA GURNEY WITH PRESENT AT BEDSIDE, IV IS PATENT AND INTACT, NOTED TO HAVE LFA AV SHUNT, PT RECEIVED DIALYSIS TODAY WITH 2.5L OUT PER SLADE CONTE, AV SHUNT WAS BLEEDING EARLY TODAY BUT NO CURRENT BLEEDING NOTED AT THIS TIME, PER DG PLASTIC SEWER NURSE MADE AWARE AND ILANA WAS PAGED. AWAITING FOR MINERAL OIL TO BE BROUGHT. SAFETY PRECAUTIONS IN PLACE, SITTER PRESENT AT BEDSIDE, CALL LIGHT WITHIN REACH, WILL MONITOR ACCORDINGLY
--- NOTE | 2018-09-21 14:02 | NUR ---
RN NOTE AWAITING FOR PRASANTH ROGERS TO BE BROUGHT UP TO THE FLOOR
--- NOTE | 2018-09-21 14:47 | NUR ---
AMA NOTE PT LEFT AMA AT THIS TIME. PT WAS INFORMED LEAVING AMA WAS NOT ADVISABLE DUE TO HIM JUST BEING ADMITTED THIS LAST NIGHT. EDUCATION WAS PROVIDED. DID NOT WANT TO WAIT FOR AV SHUNT TO BE ASSESSED BY DOCTOR OR DIALYSIS NURSE AFTER IT WAS NOTED TO BE BLEEDING EARLIER THIS SHIFT. ALL EXITCARE, D/C PAPERWORK, AND BELONGINGS LIST WERE SIGNED, DISCUSSED, AND HANDED TO THE PT. IV AND ID BAND WERE REMOVED. PHOTOS IN CHART. ALL NEEDS WERE ATTENDED TO DURING THEIR STAY. PT LEFT AMA AT THIS TIME Addendum: 09/21/18 at 1458 by HEMANTH PICKERING RN Unique Id: [id number]
[2018-09-21] MEDS ORDERED: ATORVASTATIN 40 MG TABLET PO SCH (22:00)
== END 2018-09-21 14:47 | disposition left against medical advice (07) | DRG 291 ==
LOC: ER 02:27 → TELE 04:02 → MED 09:14 → MEDSG2 13:22
PROVIDERS: ADMIT Internal Medicine Nephrology; ATTEND Internal Medicine Nephrology
PROC: 5A1D70Z Performance of Urinary Filtration, Intermittent, Less than 6 Hours Per Day (ICD-10-PCS; principal; 2018-09-21)
DX: I13.2 Hypertensive heart and chronic kidney disease with heart failure and with stage 5 chronic kidney disease, or end stage renal disease (principal); N18.6 End stage renal disease; J96.00 Acute respiratory failure, unspecified whether with hypoxia or hypercapnia; N25.81 Secondary hyperparathyroidism of renal origin; G93.40 Encephalopathy, unspecified; Z99.2 Dependence on renal dialysis; D69.6 Thrombocytopenia, unspecified; E03.9 Hypothyroidism, unspecified; E78.5 Hyperlipidemia, unspecified; D63.1 Anemia in chronic kidney disease; I50.9 Heart failure, unspecified; Z98.890 Other specified postprocedural states; Z88.4 Allergy status to anesthetic agent; Z88.5 Allergy status to narcotic agent; Z79.899 Other long term (current) drug therapy; Z82.49 Family history of ischemic heart disease and other diseases of the circulatory system; Z83.3 Family history of diabetes mellitus; G72.9 Myopathy, unspecified
CPT/HCPCS: 36415; 71045-TC; 80048-TC; 80076-TC; 83605-TC; 83880; 84484-TC; 85025-TC; 85730-TC; 86706; 87040-TC; 87081-TC; 87340; 90935-TC; 97116-TC; 97530-TC; G0378; J1940

== ENCOUNTER 2018-10-29 20:53 | Inpatient (IN) | payer MEDICARE, BC ==
[2018-10-30] MEDS ORDERED: NIFEdipine (10MG) 10 MG CAPSULE PO SCH (06:00)
[2018-10-30] MEDS: hydrALAZINE HCL IV 20 MG VIAL IV PRN ×2 (06:10→10:40)
[2018-10-30] MEDS ORDERED: hydrALAZINE HCL IV 20 MG VIAL ONE (06:10)
[2018-10-30] MEDS ORDERED: CLONIDINE HCL 0.1 MG TABLET ONE (06:17)
[2018-10-30] MEDS ORDERED: CLONIDINE HCL 0.1 MG TABLET PO PRN (06:30)
[2018-10-30] MEDS ORDERED: LABETALOL HCL IV 100MG VIAL ONE (06:52)
[2018-10-30] MEDS: LABETALOL 20 MG/4 ML VIAL IV ONE ×2 (06:53→06:58)
[2018-10-30] MEDS ORDERED: NITROPRUSSIDE SODIUM 50 MG in IV D5W 250 ML IV PRN (07:00)
[2018-10-30] MEDS ORDERED: NTG 50 MG/D5W250 ML BOTTL 250 ML IV PRN (07:30)
[2018-10-30] MEDS ORDERED: ALPR1TAB2 PO (08:56)
[2018-10-30] MEDS: CEFTRIAXONE 1 G in IV D5W 50 ML IV SCH (10:06)
[2018-10-30] MEDS: ESCITALOPRAM OXALATE (10 MG) 10 MG TABLET PO SCH (10:06)
[2018-10-30] MEDS: FAMOTIDINE (20 MG) 20 MG TABLET PO SCH (16:32)
[2018-10-30] MEDS: NIFEdipine XL (30MG) 30 MG TAB PO SCH (16:32)
[2018-10-30] MEDS: ISOSORBIDE DINITRATE (20MG) 20 MG TABLET PO SCH (16:33)
[2018-10-30] MEDS ORDERED: CARVEDILOL 6.25 MG TABLET PO SCH (17:00)
[2018-10-30] MEDS ORDERED: ISOSORBIDE DINITRATE (20MG) 20 MG TABLET PO SCH (17:00)
[2018-10-30] MEDS: ONDANSETRON HCL/PF 4 MG/2 ML VIAL IV PRN (18:47)
[2018-10-30] MEDS ORDERED: ALPRAZOLAM 1 MG TABLET PO SCH (22:00)
[2018-10-30] MEDS ORDERED: ATORVASTATIN 40 MG TABLET PO SCH (22:00)
[2018-10-31] MEDS: ESCITALOPRAM OXALATE (10 MG) 10 MG TABLET PO SCH (08:26)
[2018-10-31] MEDS: LEVOTHYROXINE SODIUM 125 MCG TABLET PO SCH (08:26)
[2018-10-31] MEDS: FAMOTIDINE (20 MG) 20 MG TABLET PO SCH ×2 (08:27→17:26)
[2018-10-31] MEDS: CEFTRIAXONE 1 G in IV D5W 50 ML IV SCH (08:27)
[2018-10-31] MEDS: ISOSORBIDE DINITRATE (20MG) 20 MG TABLET PO SCH ×2 (08:30→17:27)
[2018-10-31] MEDS: NIFEdipine XL (30MG) 30 MG TAB PO SCH ×2 (08:31→17:27)
[2018-10-31] MEDS: CARVEDILOL 6.25 MG TABLET PO SCH ×2 (08:46→21:40)
[2018-10-31] MEDS: ONDANSETRON HCL/PF 4 MG/2 ML VIAL IV PRN (08:54)
[2018-10-31] MEDS ORDERED: FEE PK DOSING 1 MIN EA MC ONE (17:11)
[2018-10-31] MEDS ORDERED: VANCOMYCIN 1 GM in IV D5W 250 ML IV ONE (17:30)
[2018-11-01] MEDS: FAMOTIDINE (20 MG) 20 MG TABLET PO SCH ×2 (09:59→16:22)
[2018-11-01] MEDS: ESCITALOPRAM OXALATE (10 MG) 10 MG TABLET PO SCH (09:59)
[2018-11-01] MEDS: LEVOTHYROXINE SODIUM 125 MCG TABLET PO SCH (10:00)
[2018-11-01] MEDS: ISOSORBIDE DINITRATE (20MG) 20 MG TABLET PO SCH ×2 (10:00→16:22)
[2018-11-01] MEDS: NIFEdipine XL (30MG) 30 MG TAB PO SCH ×2 (10:01→16:21)
[2018-11-01] MEDS: CEFTRIAXONE 1 G in IV D5W 50 ML IV SCH (10:02)
[2018-11-01] MEDS: CARVEDILOL 6.25 MG TABLET PO SCH ×2 (10:03→21:06)
[2018-11-01] MEDS: VANCOMYCIN 500 MG in IV D5W 100 ML IV PRN (16:00)
[2018-11-02] MEDS: LEVOTHYROXINE SODIUM 125 MCG TABLET PO SCH (07:46)
[2018-11-02] MEDS: FAMOTIDINE (20 MG) 20 MG TABLET PO SCH ×2 (08:30→16:56)
[2018-11-02] MEDS: ESCITALOPRAM OXALATE (10 MG) 10 MG TABLET PO SCH (08:30)
[2018-11-02] MEDS: ISOSORBIDE DINITRATE (20MG) 20 MG TABLET PO SCH ×2 (08:30→16:56)
[2018-11-02] MEDS: NIFEdipine XL (30MG) 30 MG TAB PO SCH ×2 (08:33→16:56)
[2018-11-02] MEDS: CARVEDILOL 6.25 MG TABLET PO SCH ×2 (08:33→20:04)
[2018-11-02] MEDS: VANCOMYCIN 500 MG in IV D5W 100 ML IV PRN (15:54)
[2018-11-03] MEDS: LEVOTHYROXINE SODIUM 125 MCG TABLET PO SCH (07:32)
[2018-11-03] MEDS: ESCITALOPRAM OXALATE (10 MG) 10 MG TABLET PO SCH (08:12)
[2018-11-03] MEDS: FAMOTIDINE (20 MG) 20 MG TABLET PO SCH ×2 (08:12→17:04)
[2018-11-03] MEDS: ISOSORBIDE DINITRATE (20MG) 20 MG TABLET PO SCH ×2 (08:12→17:04)
[2018-11-03] MEDS: NIFEdipine XL (30MG) 30 MG TAB PO SCH ×2 (08:13→17:04)
[2018-11-03] MEDS: CARVEDILOL 6.25 MG TABLET PO SCH ×2 (08:13→20:06)
[2018-11-03] MEDS: hydrALAZINE HCL IV 20 MG VIAL IV PRN (20:05)
[2018-11-04] MEDS: LEVOTHYROXINE SODIUM 125 MCG TABLET PO SCH (08:32)
[2018-11-04] MEDS: ESCITALOPRAM OXALATE (10 MG) 10 MG TABLET PO SCH (08:32)
[2018-11-04] MEDS: CARVEDILOL 6.25 MG TABLET PO SCH ×2 (08:32→20:59)
[2018-11-04] MEDS: ISOSORBIDE DINITRATE (20MG) 20 MG TABLET PO SCH ×2 (08:32→17:22)
[2018-11-04] MEDS: FAMOTIDINE (20 MG) 20 MG TABLET PO SCH ×2 (08:32→17:22)
[2018-11-04] MEDS: NIFEdipine XL (30MG) 30 MG TAB PO SCH ×2 (08:32→17:23)
[2018-11-04] MEDS ORDERED: NEPRO VAN 237 ML CAN PO PRN (13:00)
[2018-11-04] MEDS ORDERED: VANCOMYCIN 1 GM in IV D5W 250 ML IV ONE (18:00)
[2018-11-05] MEDS: NIFEdipine XL (30MG) 30 MG TAB PO SCH (08:49)
[2018-11-05] MEDS: ISOSORBIDE DINITRATE (20MG) 20 MG TABLET PO SCH (08:49)
[2018-11-05] MEDS: CARVEDILOL 6.25 MG TABLET PO SCH (08:50)
[2018-11-05] MEDS: ESCITALOPRAM OXALATE (10 MG) 10 MG TABLET PO SCH (08:50)
[2018-11-05] MEDS: FAMOTIDINE (20 MG) 20 MG TABLET PO SCH (08:50)
[2018-11-05] MEDS: LEVOTHYROXINE SODIUM 125 MCG TABLET PO SCH (08:54)
[2018-11-05] MEDS ORDERED: ESCI10TA PO (12:27)
== END 2018-11-05 15:24 | DRG 291 ==
DX: I13.2 Hypertensive heart and chronic kidney disease with heart failure and with stage 5 chronic kidney disease, or end stage renal disease (principal); N18.6 End stage renal disease; J96.92 Respiratory failure, unspecified with hypercapnia; G92 Toxic encephalopathy; I50.33 Acute on chronic diastolic (congestive) heart failure; N39.0 Urinary tract infection, site not specified; I31.3 Pericardial effusion (noninflammatory); N25.81 Secondary hyperparathyroidism of renal origin; I16.0 Hypertensive urgency; D64.9 Anemia, unspecified; E03.9 Hypothyroidism, unspecified; Z99.2 Dependence on renal dialysis; E83.42 Hypomagnesemia; Z91.15 Patient's noncompliance with renal dialysis; G72.89 Other specified myopathies; D69.59 Other secondary thrombocytopenia; Z87.891 Personal history of nicotine dependence; F03.90 Unspecified dementia, unspecified severity, without behavioral disturbance, psychotic disturbance, mood disturbance, and anxiety; E78.5 Hyperlipidemia, unspecified; H92.22 Otorrhagia, left ear